=== PATIENT | female | born 1960 | race Caucasian/White ===

== ENCOUNTER → 2018-03-13 06:55 | Outpatient (CLI) | payer BC, SELFPAY ==
[2018-03-13 09:56] LABS: Alanine Aminotransferase 41 IU/L (9-52); Albumin 4.4 g/dL (3.5-5.0); Albumin Globulin Ratio 1.5 (1.0-2.8); Alkaline Phosphatase 98 U/L (38-126); Aspartate Aminotransferase 37 IU/L (14-36); BUN Creatinine Ratio 18.8 (6-22); Bilirubin Total 0.6 mg/dL (0.2-1.3); Blood Urea Nitrogen 15 mg/dL (7-17); Calcium 9.2 mg/dL (8.4-10.2); Carbon Dioxide 28 mmol/L (22-32); Chloride 104 mmol/L (98-107); Cholesterol 153 mg/dL (140-199); Estimated Glomerular Filt Rate > 60.0 mL/min (>60); Globulin 2.9 g/dL (1.7-4.1); Glucose 93 mg/dL (70-100); HDL Cholesterol 61 mg/dL (40-60); HEMOLYSIS < 15 (0-50); LDL Cholesterol Calculated 78 mg/dL (<100); Potassium 4.1 mmol/L (3.4-5.1); Sodium 143 mmol/L (137-145); Total Protein 7.3 g/dL (6.3-8.2); Triglycerides 70 mg/dL (35-150)
== END ==
PROVIDERS: PCP Student in an Organized Health Care Education/Training Program; Visit Provider Registered Nurse
DX: I10 Essential (primary) hypertension (principal); E78.5 Hyperlipidemia, unspecified
CPT/HCPCS: 36415; 80053; 80061

== ENCOUNTER → 2018-11-07 09:18 | Outpatient (CLI) | payer BC, SELFPAY ==
--- NOTE | 2018-11-07 09:20 | DI.MG.S_ITS ---
BILATERAL DIGITAL SCREENING MAMMOGRAM 3D/2D WITH CAD: 11/07/2018 CLINICAL: Routine screening. Comparison is made to exams dated: 11/02/2015 mammogram, 04/24/2012 mammogram, and 12/27/2009 mammogram - [facility]. The tissue of both breasts is heterogeneously dense. This may lower the sensitivity of mammography. Current study was also evaluated with a Computer Aided Detection (CAD) system. No significant masses, calcifications, or other findings are seen in either breast. There has been no significant interval change. IMPRESSION: NEGATIVE There is no mammographic evidence of malignancy. A 1 year screening mammogram is recommended. This exam was interpreted at Station ID: [id number]. NOTE: For mammograms, a report in lay terms will be sent to the patient. Approximately 15% of breast malignancies will not be visualized mammographically. In the management of a palpable breast mass, a negative mammogram must not discourage biopsy of a clinically suspicious lesion. Electronically Signed By: Amirah ruiz/seema:11/09/2018 08:52:26 letter sent: Normal Exam ACR BI-RADS Category 1: Negative 3341F
== END ==
PROVIDERS: PCP Student in an Organized Health Care Education/Training Program; Visit Provider Student in an Organized Health Care Education/Training Program
DX: Z12.31 Encounter for screening mammogram for malignant neoplasm of breast (principal)
CPT/HCPCS: 77063; 77067

== ENCOUNTER 2018-11-27 09:22 | Day surgery (SDC) | payer BC, SELFPAY ==
--- NOTE | 2018-11-27 | PATH_ITS ---
[facility] Accession Number: [id number] . 01 Material submitted: . PART A: colon - POLYP AT 30 PART B: colon - LESION NEAR APPENDICEAL OPENING PART C: colon - BIOPSY COLON AT 70 . 02 Diagnosis: A. Biopsy, Colon Polyp at 30 cm: Tubular adenoma involving both biopsy fragments. . B. Biopsy, Lesion Near Appendiceal Opening: Colon mucosal fragments with prominent mucosal lymphoid hyperplasia, negative for atypia. . C. Biopsy, Colon at 70 cm: Single polypoid-shaped fragment of colon mucosa associated with prominent mucosal lymphoid aggregate. MRV/11/30/2018 . 02 Electronically signed: . Cesar Love MD, Pathologist NPI- [id number] . 01 Gross description: . Part A: POLYP AT 30: Received in formalin are 2 fragment(s) of henderson, soft tissue measuring 0.5 x 0.3 x 0.2 cm to 0.4 x 0.3 x 0.2 cm submitted entirely in 1 cassette(s) Part B: LESION NEAR APPENDICEAL OPENING: Received in formalin are 3 fragment(s) of henderson, soft tissue measuring 0.5 x 0.4 x 0.2 cm to 0.3 x 0.2 x 0.1 cm submitted entirely in 1 cassette(s) Part C: BIOPSY COLON AT 70: Received in formalin are 2 fragment(s) of henderson, soft tissue measuring 0.6 x 0.5 x 0.1 cm to 0.4 x 0.2 x 0.1 cm submitted entirely in 1 cassette(s) /CKI /CKI . 02 Pathologist provided ICD-10: D12.5 . 02 CPT . 508541, 902607, 173359 Performed at: 01 [facility] [address] [id number] MD Emeka Aldridge MD Phone: [phone] Performed at: [address] [facility] [address] [place] [id number] MD Kelly Haas MD Phone: [phone]
[2018-11-27 09:56] VITALS: BP 144/86; PULSE 87; RESP 16; TEMP 36.3; O2SAT 99; BMI 31.4
[2018-11-27] MEDS: SODIUM CHLORIDE 0.9% 1,000 ML 200 ML IV (10:06)
[2018-11-27] MEDS: ONDANSETRON 4 MG/2 ML INJ IV (11:10)
--- NOTE | 2018-11-27 11:24 | PM.HP.1 ---
History of Present Illness Date Patient Seen: 11/27/18 Time Patient Seen: 11:06 Chief complaint: [id number] Narrative: The patient is a woman here for screening colonoscopy. This is her 1st exam. No family history colon cancer. Patient History Medical History Anxiety (Chronic) Cataract (Chronic) Depression (Chronic) Hypertension (Chronic) Irregular periods/menstrual cycles (Chronic) Migraines (Chronic) Perimenopausal (Chronic 2011) Vertigo (Chronic) Chicken pox (Resolved) Fractures (Resolved 1977) Mumps (Resolved) Surgical History Anesthesia (Resolved) History of bladder suspension procedure (Resolved) History of hand surgery (Resolved 2012) Status post appendectomy (Resolved 1964) Status post tubal ligation (Resolved 1982) Family History (Updated 03/11/18 @ 14:09 by Matilde Gomez) Father Age: 86 High cholesterol Mental health problem Mother Essential hypertension Mental health problem Dementia Sister Gastric cancer Social History household members: spouse Smoking Status: Former smoker alcohol intake: never substance use type: does not use Family & Social History Family History Father Age: 86 High cholesterol Mental health problem Mother Essential hypertension Mental health problem Dementia Sister Gastric cancer Social History: household members spouse Tobacco & Substance use: Smoking Status Former smoker alcohol intake never Meds Home Medications Medication Instructions Recorded Confirmed Type acetaminophen [Tylenol Extra 500 mg PO PRN #0 09/16/12 11/27/18 History Strength] omeprazole 20 mg capsule,delayed 20 mg PO QDAY #30 cap 04/16/18 11/27/18 Rx release sertraline 100 mg tablet 200 mg PO HS #60 tab 04/16/18 11/27/18 Rx atorvastatin 40 mg tablet 40 mg PO HS #90 tab 06/23/18 11/27/18 Rx rizatriptan 10 mg disintegrating 10 mg PO PRN PRN #7 tab 07/14/18 11/27/18 Rx tablet verapamil ER (SR) 240 mg 240 mg PO QDAY #90 tab 07/14/18 11/27/18 Rx tablet,extended release albuterol sulfate HFA 90 1 puff INHALATION Q4-6H PRN #6.7 07/17/18 11/27/18 Rx mcg/actuation aerosol inhaler gram Allergies Allergy/AdvReac Type Severity Reaction Status Date / Time hydrocodone Allergy Mild Verified 11/27/18 09:51 oxycodone Allergy Mild HEADACHES Verified 11/27/18 09:51 Penicillins Allergy Mild Verified 11/27/18 09:51 codeine [CODEINE] Allergy Unknown Verified 11/27/18 09:51 propoxyphene AdvReac Mild VOMITING Verified 11/27/18 09:51 Review of Systems Review of Systems All systems reviewed & are unremarkable except as noted in HPI and below Exam Vital Signs (past 8 hours): - 11/27/18 09:56 Temperature 97.3 F L Pulse Rate 87 Respiratory Rate 16 Blood Pressure 144/86 H Pulse Oximetry 99 Oxygen Delivery Method Room Air Narrative Exam Narrative: Pleasant cooperative patient no apparent distress. Lungs are clear to auscultation. No rales or rhonchi. Heart regular rate and rhythm no murmur gallop. Abdomen is soft nontender without mass. No obvious hernias. Patient is alert and oriented x3. Assessment & Plan Assessment & Plan narrative: The patient for a screening colonoscopy. I have discussed the procedure with them. Risks of bleeding, perforation which would necessitate major operation, failure to find remove all lesions, the potential tattoo were all discussed. All questions were answered. They wished to proceed. Patient has nausea with narcotics. Was given a scopolamine patch and Zofran prior to the procedure
--- NOTE | 2018-11-27 11:26 | PM.PREOP ---
Pre-operative Note Interval Note History & Physical reviewed/Exam performed by Physician: Yes Changes to H&P: No ASA Class (for procedural sedation): II
[2018-11-27] MEDS: GLUCAGON,HUMAN RECOMBINANT 1 MG/ML VIAL IV (11:33)
--- NOTE | 2018-11-27 11:44 | SUR.OPER ---
GLASSES IN LABELED BAG TO PACU WITH PATIENT
[2018-11-27] MEDS: MIDAZOLAM 5 MG/5 ML VIAL IV (11:46)
[2018-11-27] MEDS: fentaNYL 250 MCG/5 ML INJ IV (11:47)
--- NOTE | 2018-11-27 12:05 | PM.OP.ENDO ---
Operative Date/Time/Diagnoses Date of procedure: 11/27/18 Time of procedure: 12:05 Pre-op diagnosis: Screening examination. This is the patient's 1st colonoscopy. She is 58 years of age. Post-op diagnosis: same (Polypoid lesions. Occasional sigmoid diverticulosis. Internal hemorrhoids.) Procedure & Clinicians Study performed: Colonoscopy with cold biopsy Same procedure as scheduled: Yes Indications: Screening Surgeon: Dikr Ravi Procedure Notes SCOAP/Timeout: Performed Procedure in detail: The patient was placed in the left lateral decubitus position and underwent IV sedation directed by the surgeon consisting of fentanyl and Versed. Digital exam was remarkable for slight increase in tone. The scope was inserted and advanced through the rectum into the sigmoid, descending, transverse, and ascending colon. There was a small polyp near a diverticulum which I biopsied on the way in at 30 cm. The colon was somewhat tortuous. A stiffener had to be applied. The patient had to be repositioned and pressure applied to the abdomen to get to the ascending colon and ultimately the cecum. The cecum was reached identified by the ileocecal valve and the appendiceal opening. The ileocecal valve was successfully cannulated. The terminal ileum was normal in appearance. There was a very odd raised lesion in the region of the appendiceal opening. The patient had had An open appendectomy years ago. These surface of the mucosa was normal in appearance but this piece of tissue extended into the lumen of the colon. It was almost as though it were a polyp on a stalk except the mucosa looked normal. I biopsied the surface to make sure was nothing significant. I suspected is some kind of long-term reaction to her appendectomy. The scope was gradually brought out. One additional Polyps were found at 70 cm. The scope ultimately was retroflexed in the rectum. The appearance was fairly normal but on bringing the scope slowly through the anus there was a cluster of hemorrhoids just inside the anal verge. There were no ulcerations. The scope was removed and the patient tolerated the procedure well. The prep was very good. Scope withdrawal time: Over 10 minutes Sedation minutes: 37 Findings: diverticulosis (Rare) and polyp (Small) Specimen(s): other (Polyps and cecal lesion) Complications: none Recommendations: Colonscopy in 5 years Plan for aftercare: Consider deep sedation at next exam as patient was very uncomfortable during portions of this exam Follow up: as needed Disposition: PACU
[2018-11-27 12:09] VITALS: BP 121/63; PULSE 84; RESP 16; TEMP 36.6; O2SAT 97
[2018-11-27 12:14] VITALS: BP 110/66; PULSE 76; RESP 16; O2SAT 97
[2018-11-27 12:19] VITALS: BP 112/63; PULSE 80; RESP 15; O2SAT 98
[2018-11-27 12:28] VITALS: BP 116/74; PULSE 77; RESP 14; TEMP 36.3; O2SAT 99
--- NOTE | 2018-11-27 12:28 | SUR.PHASEII ---
returned, d/c instructions discussed. pt left when ready and left in stable condition.
--- NOTE | 2018-11-27 12:40 | SUR.PHASEII ---
in, d/c instructions discussed, all voiced an understanding.
== END 2018-11-27 12:44 | disposition home or self-care (01) ==
PROVIDERS: PCP Student in an Organized Health Care Education/Training Program; Visit Provider Specialist
PROC: 0DJD8ZZ Inspection of Lower Intestinal Tract, Via Natural or Artificial Opening Endoscopic (ICD-10-PCS; CPT 45378; principal; 2018-11-27 10:45)
DX: Z12.11 Encounter for screening for malignant neoplasm of colon (principal); K57.30 Diverticulosis of large intestine without perforation or abscess without bleeding; K64.8 Other hemorrhoids; F41.9 Anxiety disorder, unspecified; I10 Essential (primary) hypertension; D12.5 Benign neoplasm of sigmoid colon
CPT/HCPCS: 45380; 99152; 99153; J1610; J2250; J2405; J3010

== ENCOUNTER → 2019-06-24 13:55 | Outpatient (CLI) | payer BC, SELFPAY ==
[2019-06-24 14:12] LABS: RBC Urine None Seen (0-5/HPF)
[2019-06-24 15:37] LABS: Appearance Urine UA CLEAR; Bilirubin Urine UA NEGATIVE (NEGATIVE); Color Urine UA YELLOW; Glucose Urine UA NEGATIVE (Negative); Ketones Urine UA NEGATIVE (NEGATIVE); Leukocyte Esterase Urine UA 1+ (NEGATIVE); Nitrite Urine UA NEGATIVE (Negative); Occult Blood Urine UA TRACE-INTACT (Negative); Protein Urine UA NEGATIVE (Negative); Specific Gravity Urine UA 1.025 (1.000-1.035); Urobilinogen Urine UA 0.2 E.U./dL (0.2)
[2019-06-24 15:39] LABS: pH Urine UA 5.5 (4.5-8.0)
[2019-06-24 15:42] LABS: Bacteria Urine Moderate (10-30); WBC Urine 1-5/HPF (0-5/HPF)
[2019-06-24 15:43] LABS: Culture Indicated Urine Specimen Cultured
== END ==
PROVIDERS: PCP Student in an Organized Health Care Education/Training Program; Referring Provider Student in an Organized Health Care Education/Training Program; Visit Provider Student in an Organized Health Care Education/Training Program
DX: R30.0 Dysuria (principal)
CPT/HCPCS: 81001; 87086

== ENCOUNTER → 2021-01-25 12:32 | Outpatient (CLI) | payer BC, SELFPAY ==
--- NOTE | 2021-01-25 12:33 | DI.US.S_ITS ---
PROCEDURE: US EXTREMITY NONVASC UPPER LT INDICATIONS: SOFT MASS ON FOREARM TECHNIQUE: Real-time scanning was performed of the left forearm, with image documentation. COMPARISON: None. FINDINGS: Ultrasound was performed in the area of interest of the left forearm. No mass is identified. IMPRESSION: No mass is visualized in the area of interest. If clinical symptoms persist or clinical suspicion for mass is high, MRI with and without contrast is suggested for further evaluation. Dictated by: Herson Cannon M.D. on 01/25/2021 at 18:02 Approved by: Herson Cannon M.D. on 01/25/2021 at 18:03
== END ==
PROVIDERS: PCP Student in an Organized Health Care Education/Training Program; Referring Provider Family Medicine; Visit Provider Family Medicine
DX: R22.32 Localized swelling, mass and lump, left upper limb (principal)
CPT/HCPCS: 76882

== ENCOUNTER → 2021-11-01 14:04 | Outpatient (CLI) | payer BC, SELFPAY ==
[2021-11-01 15:18] LABS: Erythrocyte Sedimentation Rate 14 MM/HR (0-20)
[2021-11-01 15:20] LABS: Alanine Aminotransferase 22 IU/L (<35); Albumin 4.5 g/dL (3.5-5.0); Albumin Globulin Ratio 1.6 (1.0-2.8); Alkaline Phosphatase 95 U/L (38-126); Aspartate Aminotransferase 33 IU/L (14-36); BUN Creatinine Ratio 26.5 (6-22); Bilirubin Total 0.7 mg/dL (0.2-1.3); Blood Urea Nitrogen 22 mg/dL (7-17); C-Reactive Protein Quant 0.7 mg/dL (<1.0); Calcium 9.6 mg/dL (8.4-10.2); Carbon Dioxide 30 mmol/L (22-32); Chloride 103 mmol/L (98-107); Cholesterol 217 mg/dL (140-199); Estimated Glomerular Filt Rate > 60 mL/min (>60); Globulin 2.9 g/dL (1.7-4.1); Glucose 85 mg/dL (80-110); HDL Cholesterol 65 mg/dL (40-60); HEMOLYSIS < 15 (0-50); LDL Cholesterol Calculated 126 mg/dL (<100); Potassium 4.8 mmol/L (3.4-5.1); Sodium 139 mmol/L (137-145); Total Protein 7.4 g/dL (6.3-8.2); Triglycerides 132 mg/dL (35-150)
[2021-11-01 15:21] LABS: Rheumatoid Factor < 8.6 IU/mL (<12.0)
== END ==
PROVIDERS: PCP Student in an Organized Health Care Education/Training Program; Referring Provider Student in an Organized Health Care Education/Training Program; Visit Provider Student in an Organized Health Care Education/Training Program
DX: E78.5 Hyperlipidemia, unspecified (principal); G43.909 Migraine, unspecified, not intractable, without status migrainosus; I10 Essential (primary) hypertension; M25.541 Pain in joints of right hand
CPT/HCPCS: 36415; 80053; 80061; 85651; 86140; 86430

== ENCOUNTER → 2021-11-14 13:06 | Outpatient (CLI) | payer BC, SELFPAY ==
--- NOTE | 2021-11-14 13:06 | DI.MG.S_ITS ---
BILATERAL DIGITAL SCREENING MAMMOGRAM 3D/2D WITH CAD: 11/14/2021 CLINICAL: Routine screening. Comparison is made to exams dated: 11/07/2018 mammogram, 11/02/2015 mammogram, and 04/24/2012 mammogram - [facility]. The tissue of both breasts is heterogeneously dense. This may lower the sensitivity of mammography. Current study was also evaluated with a Computer Aided Detection (CAD) system. There are biopsy clips in both breasts. No significant masses, calcifications, or other findings are seen in either breast. There has been no significant interval change. IMPRESSION: NEGATIVE There is no mammographic evidence of malignancy. A 1 year screening mammogram is recommended. Based on the Tyrer Cuzick model (a risk assessment model) the patient's lifetime risk is 6.2% and her 10 year risk is 2.7%. According to the ACR, ACS, and NCCN guidelines, an annual breast MRI exam along with mammogram is recommended if the patient's lifetime risk is 20% or greater. This exam was interpreted at Station ID: [id number]. NOTE: For mammograms, a report in lay terms will be sent to the patient. Approximately 15% of breast malignancies will not be visualized mammographically. In the management of a palpable breast mass, a negative mammogram must not discourage biopsy of a clinically suspicious lesion. Electronically Signed By: Miki anderson/seema:11/14/2021 15:36:59 letter sent: Normal Exam ACR BI-RADS Category 1: Negative 3341F
== END ==
PROVIDERS: PCP Student in an Organized Health Care Education/Training Program; Referring Provider Student in an Organized Health Care Education/Training Program; Visit Provider Student in an Organized Health Care Education/Training Program
DX: Z12.31 Encounter for screening mammogram for malignant neoplasm of breast (principal)
CPT/HCPCS: 77063; 77067

== ENCOUNTER → 2023-02-04 08:50 | Outpatient (CLI) | payer BC, SELFPAY ==
[2023-02-04 10:11] LABS: Add Manual Diff / Slide Review NO; Basophils Absolute Auto 100 /uL (0-100); Eosinophils Absolute Auto 300 /uL (0-450); Eosinophils Percent Auto 5.4 % (2-4); Hematocrit 33.6 % (36-46); Hemoglobin 11.3 g/dL (12.0-16.0); Lymphocytes Absolute Auto 1200 /uL (1100-4500); Lymphocytes Percent Auto 24.8 % (25-40); Mean Corpuscular HGB Conc 33.5 % (30-36); Mean Corpuscular Hemoglobin 26.6 PG (26-34); Mean Corpuscular Volume 79.5 fL (80-100); Monocytes Absolute Auto 700 /uL (0-900); Monocytes Percent Auto 13.5 % (3-14); Neutrophils Absolute Auto 2600 /uL (1500-7000); Neutrophils Percent Auto 54.3 % (50-75); Platelet Count 293 X10^3/uL (150-400); Red Blood Cell Count 4.23 X10^6/uL (4.0-5.2); Red Cell Distribution Width 12.9 % (11.6-14.8); White Blood Cell Count 4.8 X10^3/uL (4.5-11.0)
[2023-02-04 10:55] LABS: Alanine Aminotransferase 28 IU/L (<35); Albumin 4.1 g/dL (3.5-5.0); Albumin Globulin Ratio 1.6 (1.0-2.8); Alkaline Phosphatase 89 U/L (38-126); Aspartate Aminotransferase 30 IU/L (14-36); BUN Creatinine Ratio 21.5 (6-22); Bilirubin Total 0.6 mg/dL (0.2-1.3); Blood Urea Nitrogen 17 mg/dL (7-17); Calcium 9.5 mg/dL (8.4-10.2); Carbon Dioxide 29 mmol/L (22-32); Chloride 101 mmol/L (98-107); Cholesterol 161 mg/dL (140-199); Estimated Glomerular Filt Rate > 60 mL/min (>60); Globulin 2.6 g/dL (1.7-4.1); Glucose 98 mg/dL (80-110); HDL Cholesterol 75 mg/dL (40-60); HEMOLYSIS < 15 (0-50); LDL Cholesterol Calculated 67 mg/dL (<100); Potassium 3.5 mmol/L (3.4-5.1); Sodium 137 mmol/L (137-145); Total Protein 6.7 g/dL (6.3-8.2); Triglycerides 93 mg/dL (35-150)
[2023-02-04 11:14] LABS: Vitamin D 25 Hydroxy (D3) 65.3 ng/mL (30.0-100.0)
[2023-02-04 11:25] LABS: TSH w/ Reflex to FT4 4.35 uIU/mL (0.47-4.68)
[2023-02-04 12:33] LABS: Appearance Urine UA CLEAR; Bilirubin Urine UA NEGATIVE (NEGATIVE); Color Urine UA YELLOW; Glucose Urine UA NEGATIVE (Negative); Ketones Urine UA TRACE (NEGATIVE); Leukocyte Esterase Urine UA TRACE (NEGATIVE); Nitrite Urine UA NEGATIVE (Negative); Occult Blood Urine UA NEGATIVE (Negative); Protein Urine UA NEGATIVE (Negative); Specific Gravity Urine UA >=1.030 (1.000-1.035); Urobilinogen Urine UA 0.2 E.U./dL (0.2)
[2023-02-04 12:37] LABS: pH Urine UA 5.5 (4.5-8.0)
[2023-02-04 12:48] LABS: Bacteria Urine None Seen; Calcium Oxalate Crystals Urine Moderate; Culture Indicated Urine Specimen Cultured; RBC Urine None Seen (0-5/HPF); Squamous Epithelial Cell Urine 1-5 /HPF (0-5/HPF); WBC Urine 1-5/HPF (0-5/HPF)
[2023-02-06 16:59] LABS: Hep C Virus Ab w/Reflex Quant NEGATIVE s/c (NEGATIVE)
== END ==
PROVIDERS: PCP Pediatrics; Referring Provider Pediatrics; Visit Provider Pediatrics
DX: I10 Essential (primary) hypertension (principal); E78.5 Hyperlipidemia, unspecified; F32.9 Major depressive disorder, single episode, unspecified; K21.9 Gastro-esophageal reflux disease without esophagitis; E55.9 Vitamin D deficiency, unspecified; Z13.820 Encounter for screening for osteoporosis
CPT/HCPCS: 36415; 80053; 80061; 81001; 82306; 84443; 85025; 86803; 87086

== ENCOUNTER → 2023-06-23 08:46 | Outpatient (CLI) | payer BC, SELFPAY ==
[2023-06-23 09:57] LABS: Add Manual Diff / Slide Review NO; Basophils Absolute Auto 100 /uL (0-100); Basophils Percent Auto 1.8 % (0-2); Eosinophils Absolute Auto 300 /uL (0-450); Eosinophils Percent Auto 4.9 % (2-4); Hematocrit 34.1 % (36-46); Hemoglobin 11.5 g/dL (12.0-16.0); Lymphocytes Absolute Auto 1500 /uL (1100-4500); Lymphocytes Percent Auto 26.2 % (25-40); Mean Corpuscular HGB Conc 33.7 % (30-36); Mean Corpuscular Volume 77.1 fL (80-100); Monocytes Absolute Auto 800 /uL (0-900); Monocytes Percent Auto 13.4 % (3-14); Neutrophils Absolute Auto 3200 /uL (1500-7000); Neutrophils Percent Auto 53.7 % (50-75); Platelet Count 281 X10^3/uL (150-400); Red Blood Cell Count 4.42 X10^6/uL (4.0-5.2); Red Cell Distribution Width 13.4 % (11.6-14.8); White Blood Cell Count 5.9 X10^3/uL (4.5-11.0)
[2023-06-23 10:47] LABS: Ferritin 8 ng/mL (11-264)
== END ==
PROVIDERS: PCP Family Medicine; Referring Provider Family Medicine; Visit Provider Family Medicine
DX: D64.9 Anemia, unspecified (principal); R12 Heartburn
CPT/HCPCS: 36415; 82728; 85025

== ENCOUNTER 2023-07-31 10:14 | Day surgery (SDC) | payer BC, SELFPAY ==
--- NOTE | 2023-07-31 | PATH_ITS ---
[facility] Accession Number: [id number] No. of containers..03 Tissue . 01 Material submitted: . PART A: duodenum bulb - DUODENAL BULB PART B: gastrointestinal site - ANTRUM PART C: gastrointestinal site - GASTRIC BODY . 01 Diagnosis: Part A: DUODENAL BULB: Duodenal mucosa with gastric heterotopia. No dysplasia or malignancy identified. No evidence of celiac disease. See comment. . Specimen Comments: The presence of gastric glands in the duodenal mucosa may present as a nodule on endoscopy. It may be metaplastic due to ongoing peptic injury or it may represent a congenital heterotopic process. . Part B: ANTRUM: Gastric mucosa with mild chronic inflammation. No Helicobacter organisms identified. No intestinal metaplasia, dysplasia, or malignancy identified. . Part C: GASTRIC BODY: Gastric mucosa with mild chronic inflammation. No Helicobacter organisms identified. No intestinal metaplasia, dysplasia, or malignancy identified. [facility] 08/05/2023 1545 Local . 01 Comment: Parts B, C: An immunohistochemical stain was performed to evaluate for Helicobacter organisms and is negative. The control stains appropriately. * This test was developed and its performance characteristics determined by [employer]. It has not been cleared or approved by the U.S. Food and Drug Administration. The FDA has determined that such clearance or approval is not necessary. This test is used for clinical purposes. It should not be regarded as investigational or for research. . 01 Electronically signed: . Emeka Aldridge MD, Pathologist NPI- [id number] . 01 Gross description: . A. Received in formalin with two patient identifiers and duodenal bulb, are four henderson soft tissue fragments ranging from 0.1 to 0.3 cm in greatest dimension. Submitted entirely in cassette A1. B. Received in formalin with two patient identifiers and antrum, are three henderson soft tissue fragments ranging from 0.2 to 0.3 cm in greatest dimension. Submitted entirely in cassette B1. C. Received in formalin with two patient identifiers and gastric body, are five henderson soft tissue fragments ranging from 0.1 to 0.4 cm in greatest dimension. Submitted entirely in cassette C1. ([id number]) /EDLMIS 08/05/2023 1545 Local . 01 Pathologist provided ICD-10: K29.50, K31.89 . 01 CPT . 926301, 472428, 834596, L17409 Specimen Comment: A courtesy copy of this report has been sent to [phone] Performed at: 01 [facility] [address], [place], [place] [id number] MD Emeka Aldridge MD Phone: [phone]
--- NOTE | 2023-07-31 10:57 | P.HP_ITS ---
History of Present Illness History of Present Illness Date Patient Seen: 07/31/23 Time Patient Seen: 10:57 Chief complaint: EGD Narrative: Karla is here for her EGD. See the office note from June for details. She continues to express dysphagia. [facility] Medical History Screening for osteoporosis Vitamin D deficiency Mass of left forearm Segmental and somatic dysfunction of rib cage Upper extremity somatic dysfunction Perimenopausal (2011) Irregular periods/menstrual cycles Cataract Vertigo Mumps Fractures (1977) Chicken pox Migraines Anxiety Depression Hypertension Surgical History Anesthesia History of hand surgery (2012) History of bladder suspension procedure Status post tubal ligation (1982) Status post appendectomy (1964) Family History Father Age: 90 High cholesterol Mental health problem Mother Essential hypertension Mental health problem Dementia Sister Gastric cancer Social History household members: spouse Smoking Status: Former smoker alcohol intake: never substance use type: does not use Meds Home Medications and Allergies Home Medications Medication Instructions Recorded Confirmed Type acetaminophen 500 mg tablet 500 mg PO PRN ##0 09/16/12 07/31/23 History (Tylenol Extra Strength) atorvastatin 40 mg tablet 40 mg PO HS #90 tabs 04/21/23 07/31/23 Rx hydrochlorothiazide 25 mg tablet 25 mg PO DAILY #90 tabs 04/21/23 07/31/23 Rx sertraline 100 mg tablet 200 mg (2 x 100 mg) PO BEDTIME 04/21/23 07/31/23 Rx #180 tabs verapamil 240 mg tablet,extended 240 mg PO DAILY #90 tabs 04/21/23 07/31/23 Rx release rizatriptan 10 mg disintegrating 10 mg PO DAILY PRN for migraine 07/31/23 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) Allergies Allergy/AdvReac Type Severity Reaction Status Date / Time hydrocodone Allergy Mild Vomiting Verified 07/31/23 10:50 oxycodone Allergy Mild HEADACHES Verified 07/31/23 10:50 Penicillins Allergy Mild Swelling Verified 07/31/23 10:50 of Lip/Tongue/Throat codeine [CODEINE] Allergy Unknown Headache Verified 07/31/23 10:50 propoxyphene AdvReac Mild VOMITING Verified 07/31/23 10:50 Exam Const General: No acute distress Resp Effort & Inspection: normal respiratory effort Assessment & Plan Assessment and plan (1) Dysphagia: Qualifiers: Dysphagia type: esophageal phase Qualified Code(s): R13.19 - Other dysphagia Status: Acute Plan We reviewed the risks and benefits of EGD with possible dilation for dysphagia and she would like to proceed
[2023-07-31 10:59] VITALS: BP 154/84; PULSE 78; RESP 18; TEMP 37.1; O2SAT 98
[2023-07-31] MEDS: LACTATED RINGERS 1,000 ML 150 ML IV (11:03)
--- NOTE | 2023-07-31 12:04 | PM.OP.EGD ---
Operative Date/Time/Diagnoses Date of procedure: 07/31/23 Time of procedure: 12:04 Pre-op diagnosis: Dysphagia Post-op diagnosis: same Procedure & Clinicians Study performed: Esophagogastroduodenoscopy Same procedure as scheduled: Yes Surgeon: Cecil Gonzales Procedure Notes Procedure in detail: Surgeon: Cecil Gonzales MD Anesthesia: Kelly Torres timeout was performed. A bite blocked was placed. The patient was positioned in the left lateral decubitus position. Anesthesia was administered. The endoscope was inserted through the bite block and passed through the esophagus and stomach and into the duodenum. The mucosa of the descending duodenal appeared normal. In the duodenal bulb there were some hypertrophic appearing patches of mucosa that were biopsied with cold forceps and sent as ?duodenal bulb?. The antrum was normal but random biopsies were taken from the antrum with cold forceps. There were patches of gastritis in the body of the stomach which were biopsied with the cold forceps and sent as ?gastric body?. The scope was retroflexed and a hiatal hernia was noted. It was a proximally 3 cm in length. The remainder of the esophagus was normal. The scope was withdrawn. The patient was awakened and brought to recovery. Sedation time: 11 minutes Findings: Hypertrophic mucosa in the duodenal bulb, patchy gastritis in the gastric body and a 3-4 cm hiatal hernia Post-procedure Disposition: PACU
[2023-07-31 12:06] VITALS: BP 100/61; PULSE 68; RESP 16; TEMP 36.9; O2SAT 95
[2023-07-31 12:11] VITALS: BP 122/68; PULSE 68; RESP 16; O2SAT 99
[2023-07-31 12:16] VITALS: BP 128/69; PULSE 70; RESP 16; O2SAT 99
== END 2023-07-31 12:30 | disposition home or self-care (01) ==
PROVIDERS: PCP Family Medicine; Referring Provider Surgery; Visit Provider Surgery
PROC: 0DJ08ZZ Inspection of Upper Intestinal Tract, Via Natural or Artificial Opening Endoscopic (ICD-10-PCS; CPT 43235; principal; 2023-07-31 11:15)
DX: R13.10 Dysphagia, unspecified (principal); K29.50 Unspecified chronic gastritis without bleeding; K44.9 Diaphragmatic hernia without obstruction or gangrene
CPT/HCPCS: 43239; J2704

== ENCOUNTER 2023-09-22 08:27 | Day surgery (SDC) | payer BC, SELFPAY ==
--- NOTE | 2023-09-22 | PATH_ITS ---
[facility] Accession Number: [id number] No. of containers..02 Tissue . 01 Material submitted: . PART A: colon - CECAL POLYP PART B: colon - ASCENDING COLON MASS . 01 Diagnosis: Part A: CECAL POLYP: Benign submucosal lipoma. . Part B: ASCENDING COLON MASS: 1. Colonic tissue with invasive adenocarcinoma, moderately differentiated. 2. No lymphovascular or perineural invasion identified. See comment. . Specimen Comments: These results were called to Dr. Gonzales by Dr. Aldridge on 09/26/2023 at 1005. . Immunohistochemical staining for markers of microsatellite instability (MSI) will be performed, and the results will be reported as an addendum. [facility] 09/26/2023 1042 Local . 01 Electronically signed: . Emeka Aldridge MD, Pathologist NPI- [id number] . 01 Gross description: . Part A: CECAL POLYP: Received in formalin is 1 fragment(s) of henderson, soft tissue measuring 0.6 x 0.6 x 0.6 cm submitted entirely in 1 cassette(s) . Part B: ASCENDING COLON MASS: Received in formalin are multiple fragment(s) of henderson, soft tissue measuring 0.1 x 0.1 x 0.1 cm to 1.0 x 0.7 x 0.6 cm submitted entirely in 1 cassette(s) /STELLA 09/26/2023 1042 Local . 01 Pathologist provided ICD-10: C18.2, D12.0 . 01 CPT . 355950, 973957, P05569, P58493 Specimen Comment: A courtesy copy of this report has been sent to [phone] Performed at: 01 [facility] [address] [place] [id number] MD Emeka Aldridge MD Phone: [phone]
[2023-09-22 08:46] VITALS: BP 143/91; PULSE 92; RESP 17; TEMP 36.4; O2SAT 98
--- NOTE | 2023-09-22 08:54 | PM.HP.1 ---
History of Present Illness History of Present Illness Date Patient Seen: 09/22/23 Time Patient Seen: 08:54 Chief complaint: Colonoscopy Narrative: Makayla is a 63 year old woman who is here for a colonoscopy due to a positive FIT test. [facility] Medical History (Updated 09/22/23 @ 09:32 by Cecil Gonzales MD) Microcytosis Screening for osteoporosis Vitamin D deficiency Mass of left forearm Segmental and somatic dysfunction of rib cage Upper extremity somatic dysfunction Perimenopausal (2011) Irregular periods/menstrual cycles Cataract Vertigo Mumps Fractures (1977) Chicken pox Migraines Anxiety Depression Hypertension Surgical History Anesthesia History of hand surgery (2012) History of bladder suspension procedure Status post tubal ligation (1982) Status post appendectomy (1964) Family History Father Age: 90 High cholesterol Mental health problem Mother Essential hypertension Mental health problem Dementia Sister Gastric cancer Social History household members: spouse Smoking Status: Former smoker alcohol intake: never substance use type: does not use Meds Home Medications and Allergies Home Medications Medication Instructions Recorded Confirmed Type acetaminophen 500 mg tablet 500 mg PO PRN ##0 09/16/12 09/22/23 History (Tylenol Extra Strength) atorvastatin 40 mg tablet 40 mg PO HS #90 tabs 04/21/23 09/22/23 Rx hydrochlorothiazide 25 mg tablet 25 mg PO DAILY #90 tabs 04/21/23 09/22/23 Rx sertraline 100 mg tablet 200 mg (2 x 100 mg) PO BEDTIME 04/21/23 09/22/23 Rx #180 tabs verapamil 240 mg tablet,extended 240 mg PO DAILY #90 tabs 04/21/23 09/22/23 Rx release rizatriptan 10 mg disintegrating 10 mg PO DAILY PRN for migraine 07/31/23 09/22/23 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) Allergies Allergy/AdvReac Type Severity Reaction Status Date / Time hydrocodone Allergy Mild Vomiting Verified 07/31/23 10:50 oxycodone Allergy Mild HEADACHES Verified 07/31/23 10:50 Penicillins Allergy Mild Swelling Verified 07/31/23 10:50 of Lip/Tongue/Throat codeine [CODEINE] Allergy Unknown Headache Verified 07/31/23 10:50 propoxyphene AdvReac Mild VOMITING Verified 07/31/23 10:50 Exam Const General: No acute distress Resp Effort & Inspection: normal respiratory effort Assessment & Plan Assessment and plan (1) Positive FIT (fecal immunochemical test): Status: Acute Plan We reviewed the risks and benefits of colonoscopy for a positive fit test and she would like to proceed.
[2023-09-22] MEDS: LACTATED RINGERS 1,000 ML 42 ML IV (09:01)
--- NOTE | 2023-09-22 10:31 | PM.OP.COLON ---
Operative Date/Time/Diagnoses Date of procedure: 09/22/23 Time of procedure: 10:31 Pre-op diagnosis: Positive fit test Post-op diagnosis: same Procedure & Clinicians Study performed: Colonoscopy Same procedure as scheduled: Yes Surgeon: Cecil Gonzales Procedure Notes Procedure in detail: Surgeon: Cecil Gonzales MD Anesthesia: Patricia Smith DO Procedure: The patient was brought to the endoscopy suite, placed in left lateral decubitus position. The patient was connected to monitoring devices. A time-out was performed. Sedation was administered. Once the patient was adequately sedated, a digital rectal exam was performed and was normal. The scope was then inserted and advanced to the cecum where the appendiceal orifice was identified and photographed. The scope was then slowly withdrawn over greater than 6 minutes. The mucosa was thoroughly inspected. There was a 5 mm polyp in the cecum removed with a hot snare. There was a large fungating mass in the mid ascending colon that involved approximately 75% of the circumference of the colon. Biopsies were taken with a combination hot cold snare as well as cold forceps. Tattoo ink was injected just distal the mass. The rest of the colon was normal. The scope was retroflexed in the rectum. Internal hemorrhoids were noted. The scope was straightened and removed. The patient was awakened and brought to recovery. Scope withdrawal time: 31 minutes Sedation time: 47 minutes EBL: 15 mL Findings: Small cecal polyp, fungating mass in the ascending colon and internal hemorrhoids Post-procedure Disposition: PACU
[2023-09-22 10:34] VITALS: BP 156/88; PULSE 73; RESP 14; TEMP 36.6; O2SAT 93
[2023-09-22 10:39] VITALS: BP 151/87; PULSE 72; RESP 24; O2SAT 99
[2023-09-22 10:44] VITALS: BP 167/95; PULSE 79; RESP 20; TEMP 36.1; O2SAT 98
[2023-09-22 10:49] VITALS: BP 148/82; PULSE 74; RESP 10; TEMP 36.2; O2SAT 98
== END 2023-09-22 11:11 | disposition home or self-care (01) ==
PROVIDERS: PCP Family Medicine; Referring Provider Surgery; Visit Provider Surgery
PROC: 0DJD8ZZ Inspection of Lower Intestinal Tract, Via Natural or Artificial Opening Endoscopic (ICD-10-PCS; CPT 45378; principal; 2023-09-22 09:30)
DX: Z12.11 Encounter for screening for malignant neoplasm of colon (principal); R19.5 Other fecal abnormalities; K64.8 Other hemorrhoids; D12.0 Benign neoplasm of cecum; C18.2 Malignant neoplasm of ascending colon
CPT/HCPCS: 45381; 45385; 45380; J2704

== ENCOUNTER → 2023-09-23 16:42 | Outpatient (CLI) | payer BC, SELFPAY ==
[2023-09-23 17:55] LABS: Add Manual Diff / Slide Review NO; Basophils Absolute Auto 100 /uL (0-100); Eosinophils Absolute Auto 200 /uL (0-450); Eosinophils Percent Auto 1.8 % (2-4); Hematocrit 38.7 % (36-46); Hemoglobin 12.9 g/dL (12.0-16.0); Lymphocytes Absolute Auto 1800 /uL (1100-4500); Lymphocytes Percent Auto 20.1 % (25-40); Mean Corpuscular HGB Conc 33.3 % (30-36); Mean Corpuscular Hemoglobin 26.4 PG (26-34); Mean Corpuscular Volume 79.1 fL (80-100); Monocytes Absolute Auto 1100 /uL (0-900); Neutrophils Absolute Auto 5600 /uL (1500-7000); Neutrophils Percent Auto 64.1 % (50-75); Platelet Count 316 X10^3/uL (150-400); Red Blood Cell Count 4.89 X10^6/uL (4.0-5.2); Red Cell Distribution Width 19.2 % (11.6-14.8); White Blood Cell Count 8.8 X10^3/uL (4.5-11.0)
[2023-09-23 18:13] LABS: Alanine Aminotransferase 26 IU/L (<35); Albumin 4.4 g/dL (3.5-5.0); Albumin Globulin Ratio 1.6 (1.0-2.8); Alkaline Phosphatase 110 U/L (38-126); Aspartate Aminotransferase 30 IU/L (14-36); BUN Creatinine Ratio 15.9 (6-22); Bilirubin Total 0.6 mg/dL (0.2-1.3); Blood Urea Nitrogen 13 mg/dL (7-17); Carbon Dioxide 26 mmol/L (22-32); Chloride 103 mmol/L (98-107); Estimated Glomerular Filt Rate > 60 mL/min (>60); Globulin 2.8 g/dL (1.7-4.1); Glucose 105 mg/dL (80-110); HEMOLYSIS < 15 (0-50); Potassium 3.4 mmol/L (3.4-5.1); Sodium 137 mmol/L (137-145); Total Protein 7.2 g/dL (6.3-8.2)
[2023-09-23 18:42] LABS: Carcinoembryonic Antigen 1.6 ng/mL (0.1-3.0)
== END ==
PROVIDERS: PCP Family Medicine; Referring Provider Surgery; Visit Provider Surgery
DX: R19.5 Other fecal abnormalities (principal)
CPT/HCPCS: 36415; 80053; 82378; 85025

== ENCOUNTER → 2023-09-25 07:09 | Outpatient (CLI) | payer BC, SELFPAY ==
--- NOTE | 2023-09-25 07:10 | DI.CT.S_ITS ---
PROCEDURE: CT CHEST ABD PEL W CON INDICATIONS: colon mass TECHNIQUE: After the administration of intravenous contrast, 5 mm thick sections acquired from the lung apices to the symphysis. 5 mm coronal and sagittal reformats were performed, with additional 7 mm MIP reformats through the lungs. For radiation dose reduction, the following was used: automated exposure control, adjustment of mA and/or kV according to patient size. COMPARISON: None. FINDINGS: Image quality: Excellent. CHEST: Lower Neck: No enlarged lymph nodes. Thyroid: No thyroid nodules which require sonographic follow up, per consensus guidelines. Subcentimeter were right thyroid nodule. Axillae: No enlarged lymph nodes. Chest Wall: Unremarkable. Lungs and Pleura: No pneumothorax or pleural effusions. No consolidation or suspicious nodules. Lingula calcified granuloma. Heart: Heart size is normal. No pericardial effusion. Thoracic Vessels: The aorta and pulmonary arteries demonstrate normal size. Mediastinum and Meka: No enlarged lymph nodes. Esophagus: No wall thickening. Small hiatal hernia. ABDOMEN: Liver: No focal lesion identified. Gallbladder: Not distended. Small gallstones. Biliary ducts: No biliary dilation. Pancreas: No ductal dilation. Spleen: Size is within normal limits. Calcified granuloma. Adrenal Glands: No adrenal nodules. Kidneys and Ureters: No hydronephrosis. Punctate nonobstructing left kidney stone. No solid mass. No complex renal cystic lesion which requires follow up. Stomach and Bowel: Mass at the ascending colon measuring approximately 3.5 cm in length, (3/34). There is luminal narrowing. The wall thickness measures 1.1 cm, (2/78). The appendix is not seen. No small bowel obstruction. Stomach is not distended. Peritoneum: No abnormal intraperitoneal fluid. No free air. Ventral Wall: No significant ventral hernia. Lower abdominal midline suture material. Abdominal Nodes: Small nodes adjacent to the ascending colon measuring 0.6 cm and 0.4 cm, (2/83, 82). No additional enlarged nodes. Vessels: Aorta and inferior vena cava are normal in size. PELVIS: Pelvic Organs: Vertically oriented uterus. Bladder: No stone. Pelvic Nodes: No enlarged lymph nodes. Miscellaneous: No inguinal hernias are seen. Bones: No aggressive osseous abnormality. IMPRESSION: 1. Ascending colonic mass measuring 3.5 cm in length. 2. Small lymph nodes near the ascending colon are indeterminate. 3. No focal hepatic lesion. Small hiatal hernia. Gallstones. Dictated by: Julian Esteves M.D. on 09/25/2023 at 9:42 Approved by: Julian Esteves M.D. on 09/25/2023 at 9:55
== END ==
PROVIDERS: PCP Family Medicine; Referring Provider Surgery; Visit Provider Surgery
DX: K63.89 Other specified diseases of intestine (principal); R19.5 Other fecal abnormalities; K44.9 Diaphragmatic hernia without obstruction or gangrene; K80.20 Calculus of gallbladder without cholecystitis without obstruction
CPT/HCPCS: 71260; 74177; Q9967

== ENCOUNTER 2023-10-14 06:25 | Inpatient (IN) | payer BC, SELFPAY ==
[2023-10-08 09:43] VITALS: BMI 32.9
[2023-10-14] VITALS (19 sets, daily range): BP systolic 132–168; BP diastolic 68–92; PULSE 63–105; RESP 10–20; TEMP 35.5–36.9; O2SAT 20–99; BMI 31.8
--- NOTE | 2023-10-14 | PATH_ITS ---
[facility] Accession Number: [id number] No. of containers..01 Tissue . 01 Material submitted: . colon - RIGHT COLON . 01 Diagnosis: RIGHT COLON, SEGMENTAL RESECTION: Invasive adenocarcinoma, poorly differentiated. Please see CAP summary below. . CASE SUMMARY (COLON AND RECTUM: RESECTION) (COLORECTAL_4.3.0.0) Procedure: Right hemicolectomy. Tumor site: Ascending colon. Histologic type: Adenocarcinoma. Histologic grade: G3, poorly differentiated. Tumor size: 3.9 cm greatest dimension. Tumor extent: Invades through muscularis propria into the pericolonic tissue. Macroscopic tumor perforation: Not identified. Lymphatic and/or vascular invasion: Not identified. Perineural invasion: Not identified. Tumor budding score: Intermediate (5-9). Treatment effect: No known presurgical therapy. . Margin status for invasive carcinoma: All margins negative for invasive carcinoma. Margin status for noninvasive tumor: All margins negative for high-grade dysplasia/intramucosal carcinoma and low-grade dysplasia. . Regional lymph node status: Regional lymph nodes present. Number of lymph nodes with tumor: One. Number of lymph nodes examined: Sixteen. Tumor deposits: Not identified. . pTNM classification (AJCC 8th Edition) pT category: pT3 pN category: pN1a pM category: Not applicable. . Additional findings: Serositis. Special studies: Performed previously on case [id number]: No loss of expression of mismatch repair proteins (MLH-1, MSH-2, MSH-6, and PMS-2). [facility] 10/17/2023 1928 Local . 01 Electronically signed: . Kelly Haas MD, Pathologist NPI- [id number] . 01 Gross description: . Received in formalin with two identifiers and right colon, is a loop of bowel with the presumed ileum attached with a long staple line to the presumed colon margin. A full thickness defect is noted at this location measuring 3.5 cm in greatest dimension. The presumed segment of ileum measures 3.5 cm in length by 1.2 cm in diameter while the segment of colon measures 18.3 cm in length by 2.8 cm in average diameter. The serosa is relatively smooth with creeping fat and a black area of adipose just distal to the cecum consistent with tattoo ink measuring 6.2 x 3.7 cm. This area is inked orange, the colon portion of the staple line is inked black, the ileal portion of the staple line is inked blue, and the mesenteric margin is inked green. The lumen contains a small amount of green-brown mucoid material. The mucosa is an ulcerated lesion with raised borders measuring 3.9 x 3.1 cm located within the ascending colon just distal to the cecum. The lesion is widely free from all margins and ileocecal valve with extension into the bowel wall but no gross invasion into the adjacent adipose. . The remaining mucosa is henderson and velvety with no lesions identified. The singer average 0.2 cm thick with no diverticula identified. No appendix is identified. . Palpation reveals 36 henderson lymph node candidates ranging from 0.1 to 0.7 cm in greatest dimension. . Limb Driver sections are submitted as follows: A1: Limb Driver margins en face. A2-A5: Lesion to normal and deepest extension. A6: Normal mucosa. A7: Ileocecal valve. A8: Six intact lymph node candidates. A9: Six intact lymph node candidates. A10: Five intact lymph node candidates. A11: Five intact lymph node candidates. A12: Four intact lymph node candidates. A13: Three intact lymph node candidates. A14: Three intact lymph node candidates. A15: Two intact lymph node candidates. A16: Single fragmented lymph node candidate. ([id number]) /DELMIS 10/15/2023 0952 Local . 01 Pathologist provided ICD-10: C18.9 . 01 CPT . 704014 Specimen Comment: A courtesy copy of this report has been sent to [phone] Performed at: [address] [address], [place], [place] [id number] MD Emeka Aldridge MD Phone: [phone]
[2023-10-14] MEDS: ACETAMINOPHEN 325 MG TABLET 975 MG PO (07:03)
[2023-10-14] MEDS: LACTATED RINGERS 1,000 ML 42 ML IV ×3 (07:03→10:22)
--- NOTE | 2023-10-14 07:41 | PM.PREOP ---
Pre-operative Note COVID-19 COVID-19 status: Not tested Interval Note History & Physical reviewed/Exam performed by Physician: Yes Changes to H&P: No ASA Class (for procedural sedation): II
[2023-10-14] MEDS: CLINDAMYCIN 900 MG/50 ML PIGGYBACK 50 MG IV (08:02)
--- NOTE | 2023-10-14 08:25 | SUR.OPER ---
Supine on padded OR bed, on pink pad, head on pillow, arms padded and tucked at sides, legs uncrossed, safety belt at thigh AND CHEST, tape over blanket over lower legs .
[2023-10-14] MEDS: BUPIVACAINE 0.5% (PF) 30 ML, EPINEPHrine 0.15 MG INJ (08:29)
[2023-10-14] MEDS: BUPIVACAINE LIPOSOME 266 MG/20 ML VIAL INJ (08:30)
--- NOTE | 2023-10-14 10:42 | P.OP_ITS ---
Operative Date/Time/Diagnoses Date of procedure: 10/14/23 Time of procedure: 10:42 Pre-op diagnosis: Right colon cancer Post-op diagnosis: same Procedure & Clinicians Procedure: Laparoscopic-assisted right hemicolectomy Same procedure as scheduled: Yes Surgeon: Cecil Gonzales Motor Transport Inspector: Everardo Solis Anesthesia Type: General Operative Notes Procedure in detail: Operation: Laparoscopic assisted right hemicolectomy Surgeon: Sofia LAZO Motor Transport Inspector: Everardo HERNANDEZ provided assistance with exposure, retraction and closure of incisions. Anesthesia: General endotracheal anesthesia The patient is a 63-year-old woman who presented with right colon cancer. She was consented for a laparoscopic assisted right hemicolectomy. Clindamycin was administered. The patient was brought to the operating room and placed on the table in the supine position. General endotracheal anesthesia was induced. A Pierre catheter was placed. The abdomen was prepped and draped in the usual fashion and a time-out was performed. A 1 cm supraumbilical incision was created. Dissection was carried down to the fascia which was scored in the midline with cautery. The peritoneum was pierced with a Peon clamp. A Dasha port was placed and the abdomen was insufflated to 15 mmHg. The camera was inserted and there was no evidence of any injury from the entry. 5 mm ports were placed in the right lower quadrant, right upper quadrant, left upper quadrant and left lower quadrant positions under direct vision. We explored the abdomen. There were filmy adhesions omentum to the low midline incision from her prior appendectomy. These were carefully taken down with the power seal. We could see that there was a mass in the mid ascending colon with associated blue dye. We started dissecting the omentum off of the proximal transverse colon. We carefully dissected the right transverse mesocolon off of duodenum staying in the natural cleavage plane. The duodenum was well seen. We then took down the hepatic flexure and the right colon in the same plane. We then mobilized the cecum and the mesentery to the terminal ileum off of the sidewall. Once the bowel was sufficiently mobilized we removed the laparoscopic equipment and created a 7 cm periumbilical incision. A small Cristian retractor was placed into the wound and the right colon was exteriorized. We then created mesenteric windows along the mesenteric border of terminal ileum and another along the proximal transverse colon just proximal to the right branch of the middle colic artery. We then lined up the terminal ileum and transverse colon and a 3-0 silk stitch was placed at the crotch. Blue towels were placed around the bowel and enterotomies were created. A [id number] functional end-to-end anastomosis was created using the 75 mm linear ALBA stapler with blue loads. The power seal was used to take down the mesentery. The ileocolic pedicle was tied with 2 0 silk ties and the right colic was also tied with 2-0 silk ties. Multiple interrupted 3-0 silk sutures were used to imbricate the staple line. The mesenteric defect was closed with a running 2-0 Vicryl. The anastomosis appeared well perfused and patent and allowed to fall back into the right abdomen. We then transition to a clean closure and injected Exparel into the plane above and below the fascia. The fascia was then closed with a running 0 PDS suture supported by multiple interrupted 0 Vicryl internal retention sutures.. The skin incisions were closed with Monocryl. EBL: 50 mL Specimen: Terminal ileum, appendix and right colon. Post-operative Condition: stable Disposition: PACU
[2023-10-14] MEDS: ONDANSETRON 4 MG/2 ML INJ IV ×2 (11:14→13:41)
[2023-10-14] MEDS: LORazepam 2 MG/ML INJ 0.5 MG IV ×2 (11:24→11:33)
[2023-10-14] MEDS: SCOPOLAMINE 1 PATCH TOP (11:45)
[2023-10-14] MEDS: hydrOXYzine 50 MG/ML INJ 25 MG IM (12:13)
--- NOTE | 2023-10-14 12:40 | SUR.PHASEI ---
1230 Dr Santiago at bedside. Updated that pt mostly sleeping, then awakens to voice, complains of nausea and pain and is restless and then falls back to sleep. ok for patient to transfer to floor. 1241 Pt transferred to floor with report and handoff at bedside to Shauna RN. Pt was calm and resting during transfer.
[2023-10-14] MEDS: LACTATED RINGERS 1,000 ML 100 ML IV (13:42)
--- NOTE | 2023-10-14 15:54 | PC.NURSE ---
Patient arrived to room 211 from PACU this afternoon. She is lethargic but easily awakened, and OX3. She complains of nausea and vomits greenish liquid minimal amount x1. She is able to doze and rest majority of the afternoon. She is able to turn side to side easily in bed with assistance. Abdominal incisions with bandaids and guaze w/ medipore tape c/d/i. She reports pain 4-5/10, hypo active BS. Pierre in place draining adequate clear yellow urine. SCD's in place, post op vitals, IVF LR at 100 ml/hr, bed alarm on, call light in reach, oriented to room, frequent rounding. Her is at bedside, very supportive.
[2023-10-14] MEDS: HYDROMORPHONE 0.5 MG INJ IV ×2 (16:39→20:33)
[2023-10-14] MEDS: ATORVASTATIN 20 MG TABLET 40 MG PO (20:33)
[2023-10-14] MEDS: SERTRALINE 50 MG TABLET 200 MG PO (20:33)
[2023-10-15] VITALS (7 sets, daily range): BP systolic 106–123; BP diastolic 44–56; PULSE 62–94; RESP 16–19; TEMP 36.1–36.7; O2SAT 93–98
[2023-10-15] MEDS: HYDROMORPHONE 0.5 MG INJ IV ×2 (02:42→08:08)
[2023-10-15] MEDS: LACTATED RINGERS 1,000 ML 100 ML IV (02:47)
[2023-10-15 06:38] LABS: Add Manual Diff / Slide Review NO; Basophils Absolute Auto 100 /uL (0-100); Basophils Percent Auto 0.6 % (0-2); Eosinophils Absolute Auto 0 /uL (0-450); Eosinophils Percent Auto 0.4 % (2-4); Hematocrit 30.4 % (36-46); Hemoglobin 10.4 g/dL (12.0-16.0); Lymphocytes Absolute Auto 1600 /uL (1100-4500); Mean Corpuscular HGB Conc 34.2 % (30-36); Mean Corpuscular Hemoglobin 26.6 PG (26-34); Mean Corpuscular Volume 77.9 fL (80-100); Monocytes Absolute Auto 1400 /uL (0-900); Monocytes Percent Auto 16.4 % (3-14); Neutrophils Absolute Auto 5600 /uL (1500-7000); Neutrophils Percent Auto 64.6 % (50-75); Platelet Count 261 X10^3/uL (150-400); Red Cell Distribution Width 16.9 % (11.6-14.8); White Blood Cell Count 8.7 X10^3/uL (4.5-11.0)
[2023-10-15 06:51] LABS: BUN Creatinine Ratio 10.7 (6-22); Blood Urea Nitrogen 8 mg/dL (7-17); Calcium 8.3 mg/dL (8.4-10.2); Carbon Dioxide 29 mmol/L (22-32); Chloride 105 mmol/L (98-107); Estimated Glomerular Filt Rate > 60 mL/min (>60); Glucose 97 mg/dL (80-110); HEMOLYSIS < 15 (0-50); Potassium 3.4 mmol/L (3.4-5.1); Sodium 135 mmol/L (137-145)
[2023-10-15] MEDS: ACETAMINOPHEN 325 MG TABLET 650 MG PO ×3 (08:08→23:01)
[2023-10-15] MEDS: hydroCHLOROthiazide 25 MG TABLET PO (08:09)
[2023-10-15] MEDS: VERAPAMIL 80 MG TABLET PO (08:09)
--- NOTE | 2023-10-15 08:54 | P.PN_ITS ---
Subjective Subjective Date Patient Seen: 10/15/23 Time Patient Seen: 08:54 Interval history: Karla had some nausea yesterday. She feels better now. She does continue to have generalized abdominal pain. She has felt some rumblings in her abdomen. Exam Vital Signs (past 8 hours): - 10/15/23 05:28 10/15/23 07:47 10/15/23 08:09 Temperature 97.8 F 98.0 F Pulse Rate 63 86 86 Respiratory Rate 18 19 Blood Pressure 106/53 L 123/53 L 123/53 L Pulse Oximetry 96 98 Oxygen Flow Rate 0 0 Oxygen Delivery Method Room Air Oxygen Flow Rate 0 Narrative Exam Narrative: Abdomen is soft, appropriately tender Objective Labs 10/15/23 05:35 10/15/23 05:35 Labs: Laboratory Results - last 24 hr 10/15/23 05:35 WBC 8.7 RBC 3.90 L Hgb 10.4 L Hct 30.4 L MCV 77.9 L MCH 26.6 MCHC 34.2 RDW 16.9 H Plt Count 261 Neut % (Auto) 64.6 Lymph % (Auto) 18.0 L Cr[place]enden % (Auto) 16.4 H Eos % (Auto) 0.4 L Baso % (Auto) 0.6 Neut # (Auto) 5600 Lymph # (Auto) 1600 [place] # (Auto) 1400 H Eos # (Auto) 0 Baso # (Auto) 100 Sodium 135 L Potassium 3.4 Chloride 105 Carbon Dioxide 29 BUN 8 Creatinine 0.75 Estimated GFR > 60 BUN/Creatinine Ratio 10.7 Glucose 97 Calcium 8.3 L PFSH Medical History (Updated 10/08/23 @ 09:45 by Zenaida Hayes RN) Anemia History of COVID-19 (06/13/19) Sinus drainage Microcytosis Screening for osteoporosis Vitamin D deficiency Mass of left forearm Segmental and somatic dysfunction of rib cage Upper extremity somatic dysfunction Perimenopausal (2011) Irregular periods/menstrual cycles Cataract Vertigo Mumps Fractures (1977) Chicken pox Migraines Anxiety Depression Hypertension Surgical History (Updated 10/08/23 @ 10:09 by Zenaida Hayes RN) Hx of bilateral cataract extraction Hx of colonoscopy (09/22/23) Hx of endoscopy (07/2023) Anesthesia History of hand surgery (2012) History of bladder suspension procedure Status post tubal ligation (1982) Status post appendectomy (1965) Family History Father Age: 91 High cholesterol Mental health problem Mother Essential hypertension Mental health problem Dementia Sister Gastric cancer Social History household members: spouse Smoking Status: Former smoker alcohol intake: never substance use type: does not use Assessment & Plan Assessment and plan (1) Colon cancer, ascending: Status: Acute Plan Discontinue Pierre catheter Hep-Lock IV Out of [id number] today We will trial Ultram for pain control Lovenox Quality VTE Deep Vein Thrombosis/Pulmonary Embolism Present on Admission: No
[2023-10-15] MEDS: POTASSIUM CHLORIDE 20 MEQ/15 ML UDC 40 MEQ PO (09:46)
[2023-10-15] MEDS: ENOXAPARIN 40 MG/0.4 ML SYRINGE SUBCUT (09:46)
--- NOTE | 2023-10-15 11:33 | CM.DANOTE ---
Initial DCP Assessment Visit Note Reviewed EMR and team rounds for status updates. Met with pt at bedside to introduce self and role, pt was found to be resting comforable in bed, was alert/oriented and able to discuss her d/c plan and preferences. 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 Her spouse will also plan to transport her home once she's medically cleared for d/c. Payor: Out of State [employer] Attending: Dr. Gonzales Pt is a 63 year-old F post-op day 1 from a R-sided colectomy. This was a planned surgery for her newly diagnosed invasive colon cancer, final pathology is pending. 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 She has not yet established with any Oncologist at this time, and is hopeful that the surgery was enough to remove the cancer without the need for further tx. Pt Dr. Gonzales, she will likely remain inpt for 3-4 days postoperatively. PT/OT recommendations pending. Plan is for her to have her vences catheter removed today, pain/symptom management, and to mobilize her from the bed to the chair. PATTERN SCRATCHER will continue to follow and assist with any evolving d/c needs during her admission and transition back home. Discharge Planning/Care Management CM Discharge Assessment Start: 10/15/23 11:31 Freq: Status: Active Protocol: Document 10/15/23 11:32 DPL (Rec: 10/15/23 11:33 DPL [id number]) Discharge Planning Assessment Assigned Pot Liner TIFF Bragg Advance Directives? No History Provided By Patient,Medical Record Has Patient been admitted in last 30 No days? Prior Living Arrangements House Household Members spouse Type of transporation used prior to Drives own vehicle admit Independent with ADL's Yes Is patient alert and oriented? Yes Caregiver for Another No DME Already Rented / Owned FWW / Walker Comment No anticipated home d/c needs identified at this time. Barriers to Discharge No Discharge Plan Home Transportation Arrangement Spouse Referrals Initiated None needed Whiteboard Updated in Patient Room with Yes name and ext. # of Pot Liner Review Status In Process Please Provide Date Initial DC 10/15/23 Assessment Was Performed Pre-Anesthesia Assessment Start: 10/08/23 09:43 Freq: Status: Active Protocol: Document 10/08/23 09:43 CAB (Rec: 10/08/23 10:15 CAB [id number]) Pre-Anesthesia Assessment Patient Information Reviewed Via Phone Assessment Assessment Completed With Patient Comment Labs @ 09/23/23 Primary Care Provider Varsha Isaac Seen Specialist in Last 12 Months Yes Specialist Seen General surgeon Primary Language Omani Agricultural Technical Officer Required No Height 157.48 cm Weight 81.647 kg Body Mass Index (BMI) 32.9 Hearing Ability Normal Visual Assist Glasses Dentition Type Teeth, Natural Present Barriers to Learning None Hx Anesthesia Reactions No Hx Family Anesthesia Reaction No Hx Malignant Hyperthermia No Hx Blood Transfusions No Hx Blood Transfusion Reaction No Anesthesia Review Requested No Certified Hyperbaric Technician No alcohol intake never Smoking Status Former smoker how long ago did patient quit smoking 1983 Substance Use Type does not use Pain Present Denied Pain History of Falling (Recent or History of Yes ) Patient is completely paralyzed or No completely immobile Mental Status Oriented to own ability Is patient on oxygen? No Does patient have ROSA/SOB No Hx Sleep Apnea No CPAP/BIPAP use not prescribed Currently Taking a Beta Surya No Can You Climb a Flight of Stairs Without Yes SOB Hx Chest Pain No Hx SOB No Hx Syncope or Dizziness No Anti-Coagulant Therapy No Has a Supervisory Training Specialist No Cardiac Testing No Hx Pacemaker/ICD No Pacemaker Rep Required? No Cardiac Clearance Received No Diet Type At Home Regular Dysphagia No Gastrointestinal Symptoms Reflux Urinary Catheter Present No Hx Urinary Self Catheterization No Diabetes No Patient No Lactating No Presence of External or Internal Medical Yes: Tuan IOL's Devices Received a COVID vaccine? No Marital Status Lives With spouse Current Living Arrangements House Number of Floors (Floors) One Floor Support System Spouse Does the Patient Have Assistance After Yes Surgery Patient Discharge Plan Description Return Home Comment Pt advised 3-4 day length of stay per surgeon Feels Safe in Current Environment Yes Been Physically Hurt or Threatened By a No Person in Current Environment Do you have thoughts of harming yourself None or others? Are you currently considering suicide? No Do you have a plan to hurt yourself or No Plan others? Do You Have Any Spiritual Beliefs That No May Affect Your HC Choices? Do You Have Any Cultural Practices That No May Affect Your HC Choices? Comment Restorationism Who Can We Speak to About Patient's Care Family, friends Identifying Code for Release of Patient Declines to issue Information Health Care Proxy/Next of Kin Mily (daughter) Health Care Proxy Emergency Contact Name Carlos () Emergency Contact or [phone] Advance Directives? No Power of African Studies Professor No PAC Instructions Durable medical equipment, Medications to take/avoid,No ETOH/petroleum product on skin DOS,NPO,Pre-surgical wash, Sensory aids,Sturdy shoes/ comfortable clothes,Do not bring valuables and remove jewelry
[2023-10-15] MEDS: IBUPROFEN 600 MG TABLET PO ×2 (12:48→18:41)
[2023-10-15] MEDS: TRAMADOL 50 MG TABLET PO ×2 (12:48→17:45)
[2023-10-15] MEDS: SERTRALINE 50 MG TABLET 200 MG PO (20:27)
[2023-10-15] MEDS: ATORVASTATIN 20 MG TABLET 40 MG PO (20:27)
[2023-10-16] MEDS: IBUPROFEN 600 MG TABLET PO ×3 (02:02→17:14)
[2023-10-16 02:09] VITALS: BP 119/61; PULSE 74; RESP 19; TEMP 36.4; O2SAT 95
[2023-10-16] MEDS: ACETAMINOPHEN 325 MG TABLET 650 MG PO ×3 (04:55→20:44)
[2023-10-16 06:13] LABS: BUN Creatinine Ratio 10.8 (6-22); Blood Urea Nitrogen 8 mg/dL (7-17); Calcium 8.2 mg/dL (8.4-10.2); Carbon Dioxide 32 mmol/L (22-32); Chloride 107 mmol/L (98-107); Estimated Glomerular Filt Rate > 60 mL/min (>60); Glucose 94 mg/dL (80-110); HEMOLYSIS < 15 (0-50); Potassium 3.7 mmol/L (3.4-5.1); Sodium 140 mmol/L (137-145)
--- NOTE | 2023-10-16 08:13 | P.PN_ITS ---
Subjective Subjective Date Patient Seen: 10/16/23 Time Patient Seen: 08:13 Interval history: Karla has had flatus and bowel movements. She has been tolerating her diet. Exam Vital Signs (past 8 hours): - 10/16/23 02:09 Temperature 97.6 F Pulse Rate 74 Respiratory Rate 19 Blood Pressure 119/61 Pulse Oximetry 95 Oxygen Flow Rate 0 Oxygen Delivery Method Room Air Oxygen Flow Rate 0 Narrative Exam Narrative: Incisions clean dry and intact Abdomen is soft Objective Labs 10/15/23 05:35 10/16/23 05:30 Labs: Laboratory Results - last 24 hr 10/16/23 05:30 Sodium 140 Potassium 3.7 Chloride 107 Carbon Dioxide 32 BUN 8 Creatinine 0.74 Estimated GFR > 60 BUN/Creatinine Ratio 10.8 Glucose 94 Calcium 8.2 L [facility] Medical History (Updated 10/08/23 @ 09:45 by Zenaida Hayes RN) Anemia History of COVID-19 (06/13/19) Sinus drainage Microcytosis Screening for osteoporosis Vitamin D deficiency Mass of left forearm Segmental and somatic dysfunction of rib cage Upper extremity somatic dysfunction Perimenopausal (2011) Irregular periods/menstrual cycles Cataract Vertigo Mumps Fractures (1977) Chicken pox Migraines Anxiety Depression Hypertension Surgical History (Updated 10/08/23 @ 10:09 by Zenaida Hayes RN) Hx of bilateral cataract extraction Hx of colonoscopy (09/22/23) Hx of endoscopy (07/2023) Anesthesia History of hand surgery (2012) History of bladder suspension procedure Status post tubal ligation (1982) Status post appendectomy (1964) Family History Father Age: 91 High cholesterol Mental health problem Mother Essential hypertension Mental health problem Dementia Sister Gastric cancer Social History household members: spouse Smoking Status: Former smoker alcohol intake: never substance use type: does not use Assessment & Plan Assessment and plan (1) Colon cancer, ascending: Status: Acute Plan Advance diet to regular today Probably home tomorrow Quality VTE Deep Vein Thrombosis/Pulmonary Embolism Present on Admission: No
[2023-10-16 08:34] VITALS: BP 126/71; PULSE 65
[2023-10-16] MEDS: VERAPAMIL 80 MG TABLET PO (08:34)
[2023-10-16] MEDS: ENOXAPARIN 40 MG/0.4 ML SYRINGE SUBCUT (08:35)
[2023-10-16] MEDS: hydroCHLOROthiazide 25 MG TABLET PO (08:35)
[2023-10-16 09:20] VITALS: BP 126/79; PULSE 72; RESP 16; TEMP 36.3; O2SAT 95
--- NOTE | 2023-10-16 13:07 | CM.DPNOTE ---
DCP Continued Reviewed EMR and team rounds for pt?s medical status. Per Provider note, pt progressing well post-op and anticipating to dc 10/16. No new discharge needs identified at this time. Plan: Anticipating dc home with spouse on 10/16. CM Team will continue to follow for coordination of discharge plans. HEMA Garcia
[2023-10-16 15:55] VITALS: BP 120/59
[2023-10-16 17:15] VITALS: BP 124/59; PULSE 66; RESP 16; TEMP 36.9; O2SAT 96
[2023-10-16 20:00] VITALS: BP 129/69; PULSE 60; RESP 17; TEMP 35.7; O2SAT 96
[2023-10-16] MEDS: ATORVASTATIN 20 MG TABLET 40 MG PO (20:45)
[2023-10-16] MEDS: SERTRALINE 50 MG TABLET 200 MG PO (20:45)
[2023-10-17 04:00] VITALS: BP 134/78; PULSE 66; RESP 17; TEMP 36.4; O2SAT 98
[2023-10-17] MEDS: IBUPROFEN 600 MG TABLET PO (06:45)
[2023-10-17 08:08] VITALS: BP 149/69
[2023-10-17] MEDS: VERAPAMIL 80 MG TABLET PO (08:08)
[2023-10-17] MEDS: hydroCHLOROthiazide 25 MG TABLET PO (08:09)
[2023-10-17 08:26] VITALS: BP 149/69; PULSE 64; RESP 18; TEMP 36.1; O2SAT 97
--- NOTE | 2023-11-06 15:19 | P.DS_ITS ---
History of Present Illness History of Present Illness Date Patient Seen: 10/17/23 Chief complaint: Right Laparoscopically Assisted Colectomy Narrative: s/p right lap colectomy no postop complications. Discharge Providers Provider Date of admission: 10/14/23 06:25 Discharge Date: 10/17/23 Primary care physician: Varsha Isaac DO Discharge provider: Mily Pierre MD Summary Hospital Course Discharge Diagnosis: s/p lap right colectomy for colon cancer. Hospital Course: OR followed by routine postop care. No complications. Status at Discharge Cognitive/behavioral status at discharge: at baseline, oriented Functional status at discharge: independent ambulation Overall status at discharge: patient is progressing back to baseline Time Spent with Patient Time spent: Less than 30 minutes Exam Vital Signs (past 8 hours): Oxygen Delivery Method Room Air Oxygen Flow Rate 0 Objective Labs 10/15/23 05:35 10/16/23 05:30 [facility] Medical History Anemia History of COVID-19 (06/13/19) Sinus drainage Microcytosis Screening for osteoporosis Vitamin D deficiency Mass of left forearm Segmental and somatic dysfunction of rib cage Upper extremity somatic dysfunction Perimenopausal (2011) Irregular periods/menstrual cycles Cataract Vertigo Mumps Fractures (1977) Chicken pox Migraines Anxiety Depression Hypertension Surgical History Hx of bilateral cataract extraction Hx of colonoscopy (09/22/23) Hx of endoscopy (07/2023) Anesthesia History of hand surgery (2012) History of bladder suspension procedure Status post tubal ligation (1982) Status post appendectomy (1964) Family History Father Age: 91 High cholesterol Mental health problem Mother Essential hypertension Mental health problem Dementia Sister Gastric cancer Social History household members: spouse Smoking Status: Former smoker alcohol intake: never substance use type: does not use Discharge Plan Discharge Plan Patient Disposition: Home Discharge orders & Medications Prescriptions: Continued acetaminophen [Tylenol Extra Strength] 500 MG tablet 500 mg PO PRN PRN (Reason: Pain) Qty: 0 neomycin 500 mg tablet 1 g PO TID Qty: 6 0RF Rx Instructions: administer at 1 PM, 2 PM, and 10 PM the day prior to surgery metronidazole 500 mg tablet 500 mg PO TID Qty: 3 0RF Rx Instructions: administer at 1 PM, 2 PM, and 10 PM the day prior to surgery verapamil 240 mg tablet extended release 240 mg PO DAILY Qty: 90 3RF sertraline 100 mg tablet 200 mg PO BEDTIME Qty: 180 3RF hydrochlorothiazide 25 mg tablet 25 mg PO DAILY Qty: 90 3RF atorvastatin 40 mg tablet 40 mg PO HS Qty: 90 3RF rizatriptan [Maxalt-HEAVY MOBILE EQUIPMENT OPERATOR] 10 mg tablet,disintegrating 10 mg PO DAILY PRN (Reason: for migraine) Follow up/Referrals: Cecil Gonzales MD [Physician] - (postop check 2-4 weeks ) Varsha Isaac DO [Primary Care Provider] - Activity Restrictions/Additional Instructions: no lifting greater than 15 lbs for 2 weeks Diet/Activity/Treatments Diet: Diet as Tolerated Skin/Wound/Dressing Care Report to your healthcare provider any signs of infection, such as:: chills, fever, increased pain and unusual drainage Visit Report/Discharge Packet Instructions: DI for Colectomy, [facility]: Wound Care Stand Alone Forms: Patient Portal/API, Stroke Signs & Symptoms, Surgery Discharge Discharge Data Primary Care Provider: Varsha Isaac VTE Deep Vein Thrombosis/Pulmonary Embolism Present on Admission: No
== END 2023-10-17 14:07 | disposition home or self-care (01) | DRG 331 ==
PROVIDERS: Admitting Provider Surgery; PCP Family Medicine; Referring Provider Surgery; Visit Provider Surgery
PROC: 0DTE0ZZ Resection of Large Intestine, Open Approach (ICD-10-PCS; principal; 2023-10-14 07:45)
DX: C18.2 Malignant neoplasm of ascending colon (principal); F41.9 Anxiety disorder, unspecified; F32.A Depression, unspecified; I10 Essential (primary) hypertension; Z87.891 Personal history of nicotine dependence
CPT/HCPCS: 36415; 44205; 80048; 85025; C9290; J0171; J1100; J1170; J1650; J1885; J2060; J2250; J2405; J2704; J3010; J3410

== ENCOUNTER 2023-11-27 10:52 | Day surgery (SDC) | payer BC, SELFPAY ==
[2023-10-14 15:01] VITALS: BMI 31.8
[2023-11-27 11:12] VITALS: BP 143/82; PULSE 78; RESP 16; TEMP 36.6; O2SAT 98; BMI 32.0
[2023-11-27] MEDS: LACTATED RINGERS 1,000 ML 42 ML IV ×2 (11:31→13:06)
--- NOTE | 2023-11-27 12:08 | PM.PREOP ---
Pre-operative Note Interval Note History & Physical reviewed/Exam performed by Physician: No Changes to H&P: Yes H&P completed within 30 days and has changed as indicated here:: S/p colectomy for colon cancer
--- NOTE | 2023-11-27 12:09 | P.HP_ITS ---
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 [facility] Medical History Anemia History of COVID-19 (06/13/19) Sinus drainage Microcytosis Screening for osteoporosis Vitamin D deficiency Mass of left forearm Segmental and somatic dysfunction of rib cage Upper extremity somatic dysfunction Perimenopausal (2011) Irregular periods/menstrual cycles Cataract Vertigo Mumps Fractures (1977) Chicken pox Migraines Anxiety Depression Hypertension Surgical History Hx of right hemicolectomy (10/14/23) Hx of bilateral cataract extraction Hx of colonoscopy (09/22/23) Hx of endoscopy (07/2023) Anesthesia History of hand surgery (2012) History of bladder suspension procedure Status post tubal ligation (1982) Status post appendectomy (1964) Family History Father Age: 91 High cholesterol Mental health problem Mother Essential hypertension Mental health problem Dementia Sister Gastric cancer Social History household members: spouse Smoking Status: Former smoker alcohol intake: never substance use type: does not use Meds Home Medications and Allergies Home Medications Medication Instructions Recorded Confirmed Type acetaminophen 500 mg tablet 500 mg PO PRN PRN Pain ##0 09/16/12 11/27/23 History (Tylenol Extra Strength) atorvastatin 40 mg tablet 40 mg PO HS #90 tabs 04/21/23 11/27/23 Rx hydrochlorothiazide 25 mg tablet 25 mg PO DAILY #90 tabs 04/21/23 11/27/23 Rx sertraline 100 mg tablet 200 mg (2 x 100 mg) PO BEDTIME 04/21/23 11/27/23 Rx #180 tabs verapamil 240 mg tablet,extended 240 mg PO DAILY #90 tabs 04/21/23 11/27/23 Rx release rizatriptan 10 mg disintegrating 10 mg PO DAILY PRN for migraine 07/31/23 11/27/23 History tablet (Maxalt-GLUE PLANT OPERATOR) Allergies Allergy/AdvReac Type Severity Reaction Status Date / Time codeine [CODEINE] Allergy Severe Migraine Verified 11/27/23 11:02 Penicillins Allergy Mild Swelling Verified 11/27/23 11:02 of Lip/Tongue/Throat hydrocodone AdvReac Severe Vomiting Verified 11/27/23 11:02 oxycodone AdvReac Severe Vomiting Verified 11/27/23 11:02 propoxyphene AdvReac Mild VOMITING Verified 11/27/23 11:02 Review of Systems Review of Systems ROS: Yes All systems reviewed with the patient and are negative except as otherwise documented Exam Vital Signs (past 8 hours): - 11/27/23 11:12 Temperature 97.8 F Pulse Rate 78 Respiratory Rate 16 Blood Pressure 143/82 H Pulse Oximetry 98 Oxygen Delivery Method Room Air Oxygen Delivery Method Room Air Const General: cooperative and comfortable Nutritional Appearance: well nourished HENMT Head: normocephalic and atraumatic Ears: hearing grossly normal bilaterally Eyes Sclera: sclerae normal Neck Neck: trachea midline Chest Chest: normal inspection of the chest Resp Effort & Inspection: normal respiratory effort and able to speak in complete sentences Cardio Rate: regular rate Rhythm: regular rhythm GI Palpation: soft and No tender Neuro General: patient alert, patient awake and patient oriented x3 Cognition: normal cognition Psych Judgment: judgment good Assessment & Plan Assessment & Plan narrative: Right sided colon cancer. Here for port placement. Plan: left, possible right subclavian vein power port placement. Time-Based Coding :: [TOTAL MINUTES] spent with patient and on the chart (including review of chart, obtaining history, exam, reviewing outside data, placing orders, documenting exam and treatment plan, and counseling patient) on [DATE].
[2023-11-27] MEDS: CEFAZOLIN 2 GM/100 ML PREMIX 100 ML IV (12:33)
--- NOTE | 2023-11-27 12:35 | SUR.OPER ---
Supine on padded OR bed, head on gel donut arms padded and tucked at sides, legs uncrossed, safety belt at thigh, tape over blanket over lower legs .
[2023-11-27] MEDS: BUPIVACAINE 0.25% W/ EPI 30 ML VIAL INJ (13:00)
[2023-11-27] MEDS: HEPARIN 5,000 UNIT, SODIUM CHLORIDE 0.9% 50 ML IV (13:02)
--- NOTE | 2023-11-27 13:04 | PM.OP.1 ---
Operative Date/Time/Diagnoses Date of procedure: 11/27/23 Time of procedure: 13:04 Pre-op diagnosis: colon cancer Post-op diagnosis: same Procedure & Clinicians Procedure: Left subclavian vein PowerPort placement Same procedure as scheduled: Yes Indications: Colon cancer Surgeon: Mily Pierre Click Yes if Unassisted: Yes Anesthesia Type: General and Local Operative Notes Findings: Normal anatomy. Good venous return through the PowerPort Closure Type: primary Specimen(s): none sent Applied: catheter (General profile PowerPort) Estimated Blood Loss (mL): 15 Blood products transfused: none Procedure in detail: Preop diagnosis: Colon cancer Postop diagnosis: Same Operative procedure: Left subclavian vein PowerPort placement Surgeon: Elvie Pierre MD Anesthetic: General with LMA intubation along with local Findings: Normal-appearing anatomy. Good venous return from the port Procedure: Patient placed in a Trendelenburg position prepped and draped in sterile fashion to expose the shoulders. Both arms tucked to the side. Left subclavian vein was accessed and a J-wire was placed into the vein. This was confirmed with fluoroscopy. I then injected more local anesthetic and created a pocket for the port just beneath the access point. Tunneled the catheter from the pocket to the access point and placed the port into the pocket. Port was attached to the anterior chest wall with interrupted 2 0 Ethibond. Catheter was placed into the left subclavian vein via peel-away sheath provided in the kit. Placement was confirmed using fluoroscopy and good venous return. I then closed skin in a two-layer fashion using 3-0 to reapproximate the subcutaneous tissue. And a 3-0 Stratafix for closure of skin. Steri-Strips and sterile dressings were placed. Patient was awakened, extubated, taken to recovery room in stable condition. Needle, instrument, sponge counts were correct. Blood loss: 15 mL Specimen: None Complications: none Post-operative Condition: stable Disposition: PACU
--- NOTE | 2023-11-27 13:09 | DI.RAD.S_ITS ---
PROCEDURE: XR CHEST 1V INDICATIONS: LSCV power port TECHNIQUE: One view of the chest was acquired. COMPARISON: None. FINDINGS: Surgical changes and devices: Left chest wall Port-A-Cath in place with tip projecting over the cavoatrial junction. Lungs and pleura: Lungs are clear. No pleural effusions or pneumothorax. Mediastinum: Mediastinal contours appear normal. Heart size is normal. Bones and chest wall: No suspicious bony lesions. Overlying soft tissues appear unremarkable. IMPRESSION: No acute cardiopulmonary abnormality is seen. Dictated by: Gonzalez Sawant M.D. on 11/27/2023 at 13:51 Approved by: Gonzalez Sawant M.D. on 11/27/2023 at 13:51
[2023-11-27 13:10] VITALS: BP 139/81; PULSE 101; RESP 11; TEMP 36.1; O2SAT 97
[2023-11-27 13:15] VITALS: BP 144/77; PULSE 91; RESP 11; O2SAT 98
[2023-11-27 13:19] VITALS: BP 141/71; PULSE 86; RESP 17; O2SAT 98
[2023-11-27 13:24] VITALS: BP 135/73; PULSE 83; RESP 16; O2SAT 99
== END 2023-11-27 13:47 | disposition home or self-care (01) ==
PROVIDERS: PCP Family Medicine; Referring Provider Surgery; Visit Provider Surgery
PROC: (CPT 36561; principal; 2023-11-27 12:15)
DX: C18.2 Malignant neoplasm of ascending colon (principal); Z45.2 Encounter for adjustment and management of vascular access device
CPT/HCPCS: 36561; 71045; 76000; C1788; J0690; J1100; J1644; J2405; J2704; J3010

== ENCOUNTER → 2023-12-20 15:38 | Outpatient (CLI) | payer BC, SELFPAY ==
[2023-10-14 15:01] VITALS: BMI 31.8
[2023-12-20 16:24] LABS: Influenza A - CEPHEID Flu A NEGATIVE (NEGATIVE); Influenza B - CEPHEID Flu B NEGATIVE (NEGATIVE); Respiratory Syncytial Virus Negative (Negative)
[2023-12-20 16:43] LABS: COVID-19 CEPHEID 4-PLEX PCR Negative (Negative)
== END ==
PROVIDERS: PCP Family Medicine; Visit Provider Registered Nurse
DX: R05.9 Cough, unspecified (principal)
CPT/HCPCS: 0241U

== ENCOUNTER → 2024-01-04 09:51 | Outpatient (CLI) | payer BC, SELFPAY ==
[2023-10-14 15:01] VITALS: BMI 31.8
== END ==
PROVIDERS: PCP Family Medicine; Visit Provider Physician Assistant Surgical
DX: R30.0 Dysuria (principal)
CPT/HCPCS: 87086

== ENCOUNTER → 2024-03-03 09:48 | Outpatient (CLI) | payer BC, SELFPAY ==
[2023-10-14 15:01] VITALS: BMI 31.8
[2024-03-03 10:44] LABS: Hematocrit 32.7 % (36-46); Hemoglobin 11.2 g/dL (12.0-16.0); Mean Corpuscular HGB Conc 34.4 % (30-36); Mean Corpuscular Hemoglobin 26.6 PG (26-34); Mean Corpuscular Volume 77.5 fL (80-100); Platelet Count 205 X10^3/uL (150-400); Red Blood Cell Count 4.22 X10^6/uL (4.0-5.2); Red Cell Distribution Width 21.1 % (11.6-14.8); White Blood Cell Count 3.6 X10^3/uL (4.5-11.0)
[2024-03-03 10:49] LABS: Add Manual Diff / Slide Review YES
[2024-03-03 11:35] LABS: Ferritin 56 ng/mL (11-264)
[2024-03-03 12:48] LABS: Neutrophils Absolute Manual 1476 /uL (3000-5900); Total Cells Counted 100
[2024-03-03 12:49] LABS: Anisocytosis 2+
[2024-03-03 12:50] LABS: Ovalocytes 1+
== END ==
LOC: LAB 09:48
PROVIDERS: PCP Family Medicine; Referring Provider Family Medicine; Visit Provider Family Medicine
DX: R71.8 Other abnormality of red blood cells (principal); R53.82 Chronic fatigue, unspecified
CPT/HCPCS: 36415; 82728; 85007; 85025

== ENCOUNTER → 2024-06-07 09:44 | Outpatient (CLI) | payer MEDICARE, SELFPAY ==
[2023-10-14 15:01] VITALS: BMI 31.8
[2024-06-07 10:31] LABS: Cholesterol 178 mg/dL (140-199); HDL Cholesterol 77 mg/dL (40-60); LDL Cholesterol Calculated 80 mg/dL (<100); Triglycerides 106 mg/dL (35-150)
== END ==
PROVIDERS: PCP Family Medicine; Referring Provider Family Medicine; Visit Provider Family Medicine
DX: E78.5 Hyperlipidemia, unspecified (principal)
CPT/HCPCS: 36415; 80061

== ENCOUNTER 2024-10-28 12:41 | Day surgery (SDC) | payer MEDICARE, SELFPAY ==
[2023-10-14 15:01] VITALS: BMI 31.8
--- NOTE | 2024-10-28 | PATH_ITS ---
[facility] Accession Number: [id number] No. of containers..01 Tissue . 01 Material submitted: . colon - DESCENDING POLYP . 01 Diagnosis: DESCENDING COLON POLYP: Vegetable material. No colonic mucosa identified. [facility] 11/03/2024 1230 Local . 01 Electronically signed: . Blayne Jovel MD, PhD, Pathologist NPI- [id number] . 01 Gross description: . DESCENDING POLYP: Received in formalin are minute fragments of mucoid material measuring 0.7 x 0.7 x 0.1 cm in aggregate. Submitted in toto in 1 cassette. /STELLA 10/30/2024 0041 Local . 01 Pathologist provided ICD-10: K63.5 . 01 CPT . 641777 Specimen Comment: A courtesy copy of this report has been sent to [phone] Performed at: [address] [facility] [id number] MD Emeka Aldridge MD Phone: [phone]
[2024-10-28 14:55] VITALS: BP 151/98; PULSE 92; RESP 16; TEMP 36.2; O2SAT 98
[2024-10-28] MEDS: LACTATED RINGERS 1,000 ML 42 ML IV (15:03)
--- NOTE | 2024-10-28 15:31 | PM.HP.IH.1 ---
History of Present Illness History of Present Illness Date Patient Seen: 10/28/24 Time Patient Seen: 15:31 Chief complaint: Colonoscopy Narrative: Karla is a 64-year-old woman who had a right hemicolectomy about a year ago for colon cancer. She has completed chemotherapy. She has had her most recent CT scan which showed no evidence of cancer PFS Medical History (Updated 08/04/24 @ 10:14 by Stefani Solano MA) Foreign body Port-A-Cath in place Colon adenocarcinoma Anemia History of COVID-19 (06/13/19) Sinus drainage Microcytosis Screening for osteoporosis Vitamin D deficiency Mass of left forearm Segmental and somatic dysfunction of rib cage Upper extremity somatic dysfunction Perimenopausal (2011) Irregular periods/menstrual cycles Cataract Vertigo Mumps Fractures (1977) Chicken pox Migraines Anxiety Depression Hypertension Surgical History Hx of right hemicolectomy (10/14/23) Hx of bilateral cataract extraction Hx of colonoscopy (09/22/23) Hx of endoscopy (07/2023) Anesthesia History of hand surgery (2012) History of bladder suspension procedure Status post tubal ligation (1982) Status post appendectomy (1964) Family History Father Age: 92 High cholesterol Mental health problem Mother Essential hypertension Mental health problem Dementia Sister Gastric cancer Social History household members: spouse Smoking Status: Former smoker alcohol intake: never substance use type: does not use Meds Home Medications and Allergies Home Medications ?Medication ?Instructions ?Recorded ?Confirmed ?Type acetaminophen 500 mg tablet 500 mg PO PRN PRN Pain ##0 09/16/12 10/28/24 History (Tylenol Extra Strength) rizatriptan 10 mg disintegrating 10 mg PO DAILY PRN for migraine 07/31/23 10/28/24 History tablet (Maxalt-CHECK PILOT) atorvastatin 40 mg tablet 40 mg PO HS #90 tabs 04/21/24 10/28/24 Rx hydrochlorothiazide 25 mg tablet 25 mg PO DAILY #90 tabs 04/21/24 10/28/24 Rx ondansetron 8 mg disintegrating mg PO DAILY PRN nausea and vomiting 04/21/24 07/04/24 History tablet sertraline 100 mg tablet 200 mg (2 x 100 mg) PO BEDTIME 04/21/24 10/28/24 Rx #180 tabs verapamil 240 mg tablet,extended 240 mg PO DAILY #90 tabs 04/21/24 10/28/24 Rx release gabapentin 100 mg capsule 100 mg PO TID 08/04/24 10/28/24 History lorazepam 0.5 mg tablet 0.5 mg PO Q6H PRN anxiety 08/04/24 10/28/24 History prochlorperazine maleate 10 mg 10 mg PO Q6H PRN nausea and 08/04/24 10/28/24 History tablet (Compazine) vomiting Allergies Allergy/AdvReac Type Severity Reaction Status Date / Time codeine (CODEINE) Allergy Severe Migraine Verified 08/04/24 08:39 Penicillins Allergy Mild Swelling Verified 08/04/24 08:39 of Lip/Tongue/Throat hydrocodone AdvReac Severe Vomiting Verified 08/04/24 08:39 oxycodone AdvReac Severe Vomiting Verified 08/04/24 08:39 propoxyphene AdvReac Mild VOMITING Verified 08/04/24 08:39 Exam Vital Signs (past 8 hours): - 10/28/24 14:55 Temperature 97.1 F L Pulse Rate 92 H Respiratory Rate 16 Blood Pressure 151/98 H Pulse Oximetry 98 Oxygen Delivery Method Room Air Oxygen Delivery Method Room Air Const General: No acute distress Assessment & Plan Assessment and plan (1) Colon adenocarcinoma: Status: Acute Plan Colonoscopy for colon cancer surveillance Time-Based Coding :: [TOTAL MINUTES] spent with patient and on the chart (including review of chart, obtaining history, exam, reviewing outside data, placing orders, documenting exam and treatment plan, and counseling patient) on [DATE]. 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
--- NOTE | 2024-10-28 15:54 | P.OP.COLON_ITS ---
Operative Date/Time/Diagnoses Date of procedure: 10/28/24 Time of procedure: 15:54 Pre-op diagnosis: History of colon cancer Post-op diagnosis: same Procedure & Clinicians Study performed: Colonoscopy Same procedure as scheduled: Yes Surgeon: Cecil Gonzales Procedure Notes Procedure in detail: Surgeon: Cecil Gonzales MD Anesthesia: Juany Peres RECLAMATION WORKER Procedure: The patient was brought to the endoscopy suite, placed in left lateral decubitus position. The patient was connected to monitoring devices. A time-out was performed. Sedation was administered. Once the patient was adequately sedated, a digital rectal exam was performed and was normal. The scope was then inserted and advanced to the anastomosis. No abnormalities were seen. The scope was then slowly withdrawn over greater than 6 minutes. The mucosa was thoroughly inspected. There was a 5 mm polyp in the descending co oksana. The scope was retroflexed in the rectum. No other abnormalities seen. The scope was straightened and removed. The patient was awakened and brought to recovery. Scope withdrawal time: 9 minutes Sedation time: 10 minutes EBL: 3 mL Findings: Small polyp in the descending colon, normal anastomosis Post-procedure Disposition: PACU
[2024-10-28 15:55] VITALS: BP 95/48; PULSE 79; RESP 12; TEMP 36.2; O2SAT 97
[2024-10-28 16:00] VITALS: BP 95/53; PULSE 73; RESP 16; O2SAT 97
[2024-10-28 16:05] VITALS: BP 108/65; PULSE 82; RESP 16; O2SAT 97
[2024-10-28 16:10] VITALS: BP 119/69; PULSE 75; RESP 17; O2SAT 98
== END 2024-10-28 16:28 | disposition home or self-care (01) ==
PROVIDERS: PCP Family Medicine; Referring Provider Family Medicine; Visit Provider Surgery
PROC: 0DJD8ZZ Inspection of Lower Intestinal Tract, Via Natural or Artificial Opening Endoscopic (ICD-10-PCS; CPT 45378; principal; 2024-10-28 15:30)
DX: Z12.11 Encounter for screening for malignant neoplasm of colon (principal); Z85.038 Personal history of other malignant neoplasm of large intestine; Z90.49 Acquired absence of other specified parts of digestive tract; Z87.891 Personal history of nicotine dependence; K63.5 Polyp of colon
CPT/HCPCS: G0105; J2704

== ENCOUNTER → 2025-02-16 | Outpatient (CLI) | payer MEDICARE, SELFPAY ==
[2023-10-14 15:01] VITALS: BMI 31.8
--- NOTE | 2025-02-16 12:05 | DI.RAD.S_ITS ---
PROCEDURE: XR KNEE RT 3V INDICATIONS: RT knee pain TECHNIQUE: 3 views of the knee were acquired. COMPARISON: [facility], , KNEE 3V LEFT, 12/14/2015, 16:34. FINDINGS: Bones: Joint spaces overall things. Fabella. No fractures or dislocations. No suspicious bony lesions. Soft tissues: No joint effusion. No suspicious soft tissue calcifications. IMPRESSION: Normal right knee. Dictated by: Nancy Petersen RR Interpreted: Andres Melendez MD on 02/16/2025 at 16:36 Transcribed by: ISABELL on 02/16/2025 at 16:37 Approved by: Andres Melendez M.D. on 02/18/2025 at 8:41
== END ==
PROVIDERS: PCP Family Medicine; Referring Provider Family Medicine; Visit Provider Family Medicine
DX: M25.561 Pain in right knee (principal)
CPT/HCPCS: 73562

== ENCOUNTER → 2025-04-04 14:46 | Outpatient (CLI) | payer MEDICARE, SELFPAY ==
[2023-10-14 15:01] VITALS: BMI 31.8
--- NOTE | 2025-04-04 14:47 | DI.MG.S_ITS ---
MM screening mammo BI: 04/04/2025. BI-RADS: 1 CLINICAL: 64-year old female for bilateral screening mammogram. Tyrer-Cuzick lifetime risk of 3.4%. No personal or first-degree family history of breast cancer. PRIOR EXAMS 11/14/2021, 11/07/2018, 11/02/2015. MAMMOGRAPHY TECHNIQUE: 2D and 3D (tomosynthesis) digital mammographic views obtained, with additional images as needed for full coverage. Current study was also evaluated with a Computer Aided Detection (CAD) system. DENSITY B. There are scattered areas of fibroglandular density. MAMMOGRAPHY FINDINGS Bilateral: No suspicious mass, asymmetry, microcalcification, or other abnormality seen. No significant change from comparison. IMPRESSION: * No evidence of malignancy. RECOMMENDATIONS Bilateral * Annual screening mammography. OVERALL ASSESSMENT CATEGORY BI-RADS-1: Negative. The [employer] recommends annual screening mammography beginning at age 40 for women with average risk of breast cancer. ELECTRONICALLY SIGNED: Lorrie Guaman M.D. on 04/05/2025 at 11:05:55 AM PT Interpreting Station ID: [id number]
== END ==
PROVIDERS: PCP Family Medicine; Referring Provider Family Medicine; Visit Provider Family Medicine
DX: Z12.31 Encounter for screening mammogram for malignant neoplasm of breast (principal)
CPT/HCPCS: 77063; 77067

== ENCOUNTER → 2025-04-26 09:50 | Outpatient (CLI) | payer MEDICARE, SELFPAY ==
[2023-10-14 15:01] VITALS: BMI 31.8
[2025-04-26 10:16] LABS: Add Manual Diff / Slide Review NO; Hematocrit 40.5 % (36-46); Hemoglobin 13.8 g/dL (12.0-16.0); Lymphocytes Absolute Auto 1300 /uL (1100-4500); Mean Corpuscular HGB Conc 33.9 % (30-36); Mean Corpuscular Hemoglobin 28.3 PG (26-34); Mean Corpuscular Volume 83.3 fL (80-100); Platelet Count 218 X10^3/uL (150-400)
[2025-04-26 10:39] LABS: HEMOLYSIS < 15 (0-50); Iron 117 ug/dL (37-170)
[2025-04-26 10:41] LABS: Alanine Aminotransferase 32 IU/L (<35); Albumin 4.4 g/dL (3.5-5.0); Albumin Globulin Ratio 1.6 (1.0-2.8); Alkaline Phosphatase 113 U/L (38-126); Blood Urea Nitrogen 20 mg/dL (7-17); Calcium 9.4 mg/dL (8.4-10.2); Carbon Dioxide 28 mmol/L (22-32); Chloride 106 mmol/L (98-107); Cholesterol 156 mg/dL (140-199); Estimated Glomerular Filt Rate > 60 mL/min (>60); Globulin 2.7 g/dL (1.7-4.1); Glucose 97 mg/dL (70-99); HDL Cholesterol 88 mg/dL (40-60); HEMOLYSIS 16 (0-50); Potassium 4.1 mmol/L (3.4-5.1); Sodium 141 mmol/L (137-145); Total Protein 7.1 g/dL (6.3-8.2); Triglycerides 88 mg/dL (35-150)
[2025-04-26 10:54] LABS: Percent Iron Saturation 38 % (15-50); Total Iron Binding Capacity 308 ug/dL (265-497); Transferrin 269 mg/dL (206-381)
[2025-04-26 10:55] LABS: Vitamin D 25 Hydroxy (D3) 70.9 ng/mL (30.0-100.0)
[2025-04-26 11:14] LABS: Ferritin 42 ng/mL (11-264)
[2025-04-26 15:49] LABS: HIV 1 & 2 Ab/Ag 4th Gen Combo NEGATIVE (NEGATIVE)
== END ==
PROVIDERS: PCP Family Medicine; Referring Provider Family Medicine; Visit Provider Family Medicine
DX: R00.0 Tachycardia, unspecified (principal); R71.8 Other abnormality of red blood cells; E78.2 Mixed hyperlipidemia; Z00.00 Encounter for general adult medical examination without abnormal findings; I10 Essential (primary) hypertension; Z85.038 Personal history of other malignant neoplasm of large intestine
CPT/HCPCS: 36415; 80053; 80061; 82306; 82728; 83540; 83550; 85025; 87389